=== PATIENT | male | born 1955 | race Caucasian/White ===

== ENCOUNTER → 2017-10-26 08:58 | Outpatient (CLI) | payer OTHER, SELFPAY ==
[2017-10-26 11:00] LABS: Anion Gap 4 (5-15); BUN 12 mg/dL (7-18); BUN/Creat Ratio 12.2 RATIO (10-20); Calcium,Total 8.5 mg/dL (8.5-10.1); Chloride 109 mmol/L (98-107); Cholesterol 168 mg/dL (200); Creatinine, Serum 0.99 mg/dL (0.70-1.30); EST Glomerular Filtration Rate 82 mL/min (>60); Est Glom Filt Rate - Afr Amer 99 mL/min (>60); Glucose 101 mg/dL (74-106); High Density Lipoprotein 56 mg/dL; PSA,Total - Annual Screen 1.11 ng/mL (0.00-4.00); Potassium 4.7 mmol/L (3.5-5.1); Sodium Level 141 mmol/L (136-145); Triglycerides 47 mg/dL; Very Low Density Lipoprotein 9 mg/dL (5-40)
== END ==
PROVIDERS: Family Provider Family Medicine; PCP Family Medicine; Visit Provider Family Medicine
DX: I10 Essential (primary) hypertension (principal); Z12.5 Encounter for screening for malignant neoplasm of prostate
CPT/HCPCS: 36415; 80048; 80061; 84153; G0103

== ENCOUNTER → 2019-01-10 | Outpatient (CLI) | payer OTHER, SELFPAY ==
[2018-12-25 09:11] VITALS: BMI 29.2
--- NOTE | 2019-01-10 08:54 | ECHOD_ITS ---
Reason For Study: Arrhythmia Procedure This was a 2D Doppler, Color Flow transthoracic echocardiogram. Contrast injection was performed. Exam performed in department. Left Ventricle Normal LV size. Mild concentric left ventricular hypertrophy. The estimated ejection fraction is 50 %. Left ventricular systolic function is lower limits of normal. There is borderline global hypokinesis of the left ventricle. Right Ventricle Normal RV size. Normal systolic function. Atria The left atrium is mildly enlarged. Normal right atrium. Intact atrial septum. Bubble contrast study negative for right to left interatrial shunt. Mitral Valve Normal mitral valve. Mild (1+) eccentric mitral valve insufficiency. Tricuspid Valve Normal tricuspid valve. Aortic Valve Trisinus/trileaflet aortic valve. Pulmonic Valve Normal pulmonic valve. Great Vessels Normal aortic root. Pericardium/Pleural No pericardial effusion. Medication 22 gauge I.V. with prn adaptor inserted into right arm. Performed a rapid injection of agitated mix of 9 cc saline and 1cc air to assess for atrial septal defect. MMode/2D Measurements & Calculations LVIDd: 5.4 cm IVSd: 1.2 cm Ao root diam: 3.7 cm LVIDs: 3.8 cm LVPWd: 1.2 cm LA dimension: 4.4 cm FS: 28.8 % LAV(MOD-bp): 72.8 ml LA A4 area: 21.4 cm2 RA A4 area: 16.3 cm2 LAV(MOD-bp) Indexed: 35.6 ml/m2 LAV(MOD-sp2): 70.6 ml LAV(MOD-sp4): 67.3 ml Time Measurements MV dec time: 0.32 sec Doppler Measurements & Calculations MV E max norris: 45.6 cm/sec Lat Peak E' Norris: 9.2 cm/sec Med Peak E' Norris: 5.4 cm/sec MV A max norris: 69.2 cm/sec E/E' lat: 4.9 E/E' med: 8.4 MV E/A: 0.66 MV V2 max: 59.1 cm/sec MV P1/2t max norris: 42.3 cm/sec Ao V2 max: 111.6 cm/sec MV max P.4 mmHg MV P1/2t: 154.7 msec Ao max P.0 mmHg MV V2 mean: 30.7 cm/sec MV dec slope: 80.0 cm/sec2 Ao V2 mean: 76.7 cm/sec MV mean P.43 mmHg Ao mean P.6 mmHg MV V2 VTI: 21.5 cm MVA(P1/2t): 1.4 cm2 Ao V2 VTI: 21.3 cm AI max norris: 465.9 cm/sec LV V1 max: 69.9 cm/sec PA V2 max: 182.7 cm/sec AI max P.8 mmHg LV V1 max P.0 mmHg AI dec slope: 159.9 cm/sec2 LV V1 mean P.92 mmHg AI P1/2t: 853.2 msec LV V1 mean: 43.9 cm/sec LV V1 VTI: 17.8 cm PI end-d norris: 111.7 cm/sec Interpretation Summary Normal LV size. Mild concentric left ventricular hypertrophy. The estimated ejection fraction is 50 %. Left ventricular systolic function is lower limits of normal. The left atrium is mildly enlarged. Intact atrial septum Bubble contrast study negative for right to left interatrial shunt. Ordering Physician: Adis Steele Referring Physician: Jagdeep Yeh Performed By: Hood Gary RCS
== END | disposition home or self-care (01) ==
LOC: CVS 08:52
PROVIDERS: Family Provider Family Medicine; PCP Family Medicine; Referring Provider Internal Medicine Cardiovascular Disease; Visit Provider Internal Medicine Cardiovascular Disease
DX: I10 Essential (primary) hypertension (principal)
CPT/HCPCS: 93306; A4216

== ENCOUNTER → 2019-04-23 10:35 | Outpatient (CLI) | payer OTHER, SELFPAY ==
[2018-12-25 09:11] VITALS: BMI 29.2
[2019-04-23 10:38] LABS: Bacteria 0 SEEN /hpf (None Seen); Mucous, Urine 0 SEEN /hpf (<or=2+); Red Blood Cells-Urine 0 SEEN /hpf (0-5); Squamous Epithelial Cells - UA 0 SEEN /hpf (0-5); White Blood Cells 0 SEEN /hpf (0-5)
[2019-04-23 12:18] LABS: Absolute Lymphocyte Count 1.61 X10^3/uL (0.83-4.51); Absolute Neutrophil Count 4.1 X10^3/uL (2.0-7.7); Basophil# 0.07 X10^3/uL; Basophil% 1.1 % (0-1); Eosinophil# 0.18 X10^3/uL; Eosinophils% 2.8 % (0-5); Hematocrit 41.5 % (40-54); Hemoglobin 13.8 g/dL (13.0-16.5); Lymphocyte # 1.61 X10^3/ul (4.0); Lymphocyte % 24.8 % (19-41); Mean Corp Hgb Conc 33.3 g/dL (32-36); Mean Corpuscular Hgb 30.3 pg (27.0-32.0); Mean Corpuscular Volume 91.2 fL (80-94); Mean Platelet Vol. 8.7 fl (6.2-12.0); Monocyte# 0.51 X10^3/uL; Monocyte% 7.9 % (0-10); NRBC Flagged by Analyzer 0 % (0-5); Neutrophil # 4.09 X10^3/uL (2.7-7.7); Neutrophil % 62.9 % (47-70); Platelet Count 242 K/mm3 (150-450); RBC Distribution Width CV 12.7 % (11.6-14.6); RBC Distribution Width SD 42.1 fl (35.1-43.9); Red Blood Count 4.55 M/mm3 (4.6-6.2); White Blood Count 6.5 K/mm3 (4.4-11.0)
[2019-04-23 12:22] LABS: Color, Urine Yellow (Yellow); Glucose, Dipstick Normal (Normal); Ketone-Dipstick Negative (Negative); Leukocyte Esterase-Dipstick Negative /ul (Negative); Nitrite-Dipstick Negative (Negative); Occult Blood-Urine Negative /ul (Negative); Protein-Dipstick Negative (Negative); Urine Bilirubin Dipstick Negative (Negative); Urine Clarity Clear (Clear); Urine Urobilinogen Normal (Normal)
[2019-04-23 12:29] LABS: Hemoglobin A1c 5.4 % (4.2-6.3)
[2019-04-23 12:34] LABS: ALB/GLOB Ratio 1.1 RATIO (0.9-2.4); AST(SGOT) 15 U/L (15-37); Alanine Aminotransfer ALT/SGPT 24 U/L (16-61); Albumin, Serum 3.5 g/dL (3.2-5.0); Alkaline Phosphatase 78 U/L (45-117); Anion Gap 6 (5-15); BUN 18 mg/dL (7-18); BUN/Creat Ratio 17.8 RATIO (10-20); Calcium,Total 8.6 mg/dL (8.5-10.1); Chloride 108 mmol/L (98-107); Creatinine, Serum 1.01 mg/dL (0.70-1.30); EST Glomerular Filtration Rate 79 mL/min (>60); Est Glom Filt Rate - Afr Amer 96 mL/min (>60); Globulin 3.2 g/dL (2.2-4.2); Glucose 95 mg/dL (74-106); Potassium 4.6 mmol/L (3.5-5.1); Protein, Total 6.7 g/dL (6.4-8.2); Sodium Level 139 mmol/L (136-145); Thyroid Stim Hormone (TSH) 0.98 uIU/mL (0.358-3.74)
[2019-04-23 13:00] LABS: Amorphous Sediment N; Calcium Oxalate Crystals Ur N /hpf (<or=2+); Coarse Granular Cast 0 SEEN /lpf (0-5 /lpf); Fine Granular Cast- Urine 0 SEEN /lpf (0-5); Hyaline Cast 0 SEEN /lpf (0-5); Other Crystals-Urine N /hpf (None Seen); Red Cell Cast 0 SEEN /lpf (None Seen); Renal Epithelial Cells 0 SEEN /hpf (0-5); Transitional Epithelial - Ur 0 SEEN /hpf (0-5); Trichomonas 0 SEEN /hpf (None Seen); Triple Phosphate Crystals Ur N /hpf (<or=1+); Uric Acid Crystals Ur N /hpf (<or=1+); Waxy Cast-Urine 0 SEEN /lpf (None Seen); White Cell Cast 0 SEEN /lpf (None Seen)
[2019-04-23 13:01] LABS: Yeast-Urine N /hpf (None Seen)
== END ==
PROVIDERS: Family Provider Family Medicine; PCP Family Medicine; Referring Provider Family Medicine; Visit Provider Family Medicine
DX: I10 Essential (primary) hypertension (principal); R73.09 Other abnormal glucose
CPT/HCPCS: 36415; 80053; 81001; 83036; 84443; 85025

== ENCOUNTER → 2019-10-28 08:59 | Outpatient (CLI) | payer OTHER, SELFPAY ==
[2018-12-25 09:11] VITALS: BMI 29.2
[2019-10-28 10:32] LABS: PSA,Total - Annual Screen 1.77 ng/mL (0.00-4.00)
== END ==
PROVIDERS: PCP Family Medicine; Referring Provider Family Medicine; Visit Provider Family Medicine
DX: Z12.5 Encounter for screening for malignant neoplasm of prostate (principal)
CPT/HCPCS: 36415; 84153; G0103

== ENCOUNTER → 2020-02-03 07:45 | Outpatient (CLI) | payer OTHER, SELFPAY ==
[2020-01-01 09:25] VITALS: BMI 29.2
--- NOTE | 2020-02-03 07:48 | ECHOD_ITS ---
Reason For Study: NON-ISCHEMIC CMP Procedure This was a 2D Doppler, Color Flow transthoracic echocardiogram. Exam performed in department. Left Ventricle Normal LV size. The estimated ejection fraction is 50 %. No regional wall motion abnormalities noted. Right Ventricle Normal RV size. Normal systolic function. Atria The left atrium is mildly enlarged. Normal right atrium. Hypermobile atrial septum. Mitral Valve Normal mitral valve. Mild (1+) eccentric mitral valve insufficiency. Tricuspid Valve Normal tricuspid valve. Aortic Valve Normal aortic valve. Trisinus/trileaflet aortic valve. Mild (1+) aortic valve insufficiency. Pulmonic Valve Normal pulmonic valve. Great Vessels Normal aortic root. The pulmonary artery is normal size. Normal inferior vena cava. Pericardium/Pleural No pericardial effusion. MMode/2D Measurements & Calculations LVIDd: 5.4 cm IVSd: 1.1 cm Ao root diam: 3.6 cm LVIDs: 3.9 cm LVPWd: 1.00 cm RVDd: 4.2 cm FS: 27.0 % LAV(MOD-bp): 74.1 ml LA A4 area: 22.3 cm2 LA dimension(2D): 4.5 cm LAV(MOD-bp) Indexed: 36.0 ml/m2 LAV(MOD-sp2): 72.0 ml LAV(MOD-sp4): 72.5 ml RA A4 area: 15.5 cm2 Doppler Measurements & Calculations MV E max norris: 38.6 cm/sec Lat Peak E' Norris: 9.1 cm/sec Med Peak E' Norris: 5.5 cm/sec MV A max norris: 62.5 cm/sec E/E' lat: 4.2 E/E' med: 7.0 MV E/A: 0.62 Ao V2 max: 111.4 cm/sec AI max norris: 459.4 cm/sec LV V1 max: 72.5 cm/sec Ao max P.0 mmHg AI max P.4 mmHg LV V1 max P.1 mmHg Ao V2 mean: 78.9 cm/sec AI dec slope: 166.0 cm/sec2 LV V1 mean P.1 mmHg Ao mean P.7 mmHg AI P1/2t: 810.5 msec LV V1 mean: 50.7 cm/sec Ao V2 VTI: 23.6 cm LV V1 VTI: 15.6 cm PA V2 max: 120.0 cm/sec TR max norris: 240.8 cm/sec TR max P.3 mmHg Interpretation Summary Hypermobile atrial septum. Normal LV size. The estimated ejection fraction is 50 %. No regional wall motion abnormalities noted. Mild (1+) eccentric mitral valve insufficiency. Mild (1+) aortic valve insufficiency. Compared to prior study, there is no significant change. Ordering Physician: Adis Steele Referring Physician: Jagdeep Yeh Performed By: Keysha Zurita, CHRISTIANO, RVT
== END ==
PROVIDERS: PCP Family Medicine; Referring Provider Internal Medicine Cardiovascular Disease; Visit Provider Internal Medicine Cardiovascular Disease
DX: I42.8 Other cardiomyopathies (principal)
CPT/HCPCS: 93306

== ENCOUNTER → 2020-04-28 08:17 | Outpatient (CLI) | payer OTHER, SELFPAY ==
[2020-01-01 09:25] VITALS: BMI 29.2
[2020-04-28 08:20] LABS: Bacteria 0 SEEN /hpf (None Seen); Mucous, Urine 0 SEEN /hpf (<or=2+); Red Blood Cells-Urine 0 SEEN /hpf (0-5); Squamous Epithelial Cells - UA 0 SEEN /hpf (0-5); White Blood Cells 0 SEEN /hpf (0-5)
[2020-04-28 10:08] LABS: Absolute Lymphocyte Count 1.98 X10^3/uL (0.83-4.51); Absolute Neutrophil Count 3.8 X10^3/uL (2.0-7.7); Basophil% 1.5 % (0-1); Eosinophil# 0.23 X10^3/uL; Eosinophils% 3.4 % (0-5); Hematocrit 41.1 % (40-54); Hemoglobin 13.6 g/dL (13.0-16.5); Lymphocyte # 1.98 X10^3/ul (4.0); Lymphocyte % 29.3 % (19-41); Mean Corp Hgb Conc 33.1 g/dL (32-36); Mean Corpuscular Volume 90.7 fL (80-94); Mean Platelet Vol. 8.8 fl (6.2-12.0); Monocyte# 0.61 X10^3/uL; NRBC Flagged by Analyzer 0 % (0-5); Neutrophil # 3.82 X10^3/uL (2.7-7.7); Neutrophil % 56.5 % (47-70); Platelet Count 282 K/mm3 (150-450); RBC Distribution Width CV 12.9 % (11.6-14.6); RBC Distribution Width SD 42.7 fl (35.1-43.9); Red Blood Count 4.53 M/mm3 (4.6-6.2); White Blood Count 6.8 K/mm3 (4.4-11.0)
[2020-04-28 10:09] LABS: Color, Urine Yellow (Yellow); Glucose, Dipstick Normal (Normal); Ketone-Dipstick Negative (Negative); Leukocyte Esterase-Dipstick Negative /ul (Negative); Nitrite-Dipstick Negative (Negative); Occult Blood-Urine Negative /ul (Negative); Protein-Dipstick Negative (Negative); Specific Gravity, Urine 1.025 (1.002-1.030); Urine Bilirubin Dipstick Negative (Negative); Urine Clarity Clear (Clear); Urine Urobilinogen Normal (Normal)
[2020-04-28 10:36] LABS: AST(SGOT) 9 U/L (15-37); Alanine Aminotransfer ALT/SGPT 20 U/L (16-61); Albumin, Serum 3.3 g/dL (3.2-5.0); Alkaline Phosphatase 71 U/L (45-117); Anion Gap 5 (5-15); BUN 15 mg/dL (7-18); BUN/Creat Ratio 15.3 RATIO (10-20); Calcium,Total 8.5 mg/dL (8.5-10.1); Chloride 110 mmol/L (98-107); Cholesterol 144 mg/dL (200); Creatinine, Serum 0.98 mg/dL (0.70-1.30); EST Glomerular Filtration Rate 82 mL/min (>60); Est Glom Filt Rate - Afr Amer 99 mL/min (>60); Globulin 3.3 g/dL (2.2-4.2); Glucose 95 mg/dL (74-106); High Density Lipoprotein 57 mg/dL; Potassium 4.5 mmol/L (3.5-5.1); Protein, Total 6.6 g/dL (6.4-8.2); Sodium Level 140 mmol/L (136-145); Thyroid Stim Hormone (TSH) 1.68 uIU/mL (0.358-3.74); Triglycerides 66 mg/dL; Very Low Density Lipoprotein 13 mg/dL (5-40)
== END ==
PROVIDERS: PCP Family Medicine; Referring Provider Family Medicine; Visit Provider Family Medicine
DX: I10 Essential (primary) hypertension (principal)
CPT/HCPCS: 36415; 80053; 80061; 81001; 84443; 85025

== ENCOUNTER 2020-06-30 13:41 | Emergency (ER) | payer OTHER, SELFPAY ==
[2020-01-01 09:25] VITALS: BMI 29.2
[2020-06-30 13:45] VITALS: BP 138/69; PULSE 77; RESP 17; TEMP 37.2; O2SAT 98; BMI 31.5
--- NOTE | 2020-06-30 13:59 | EKG12_ITS ---
Test Reason : CP Blood Pressure : / mmHG Vent. Rate : 075 BPM Atrial Rate : 075 BPM P-R Int : 170 ms QRS Dur : 106 ms QT Int : 392 ms P-R-T Axes : 033 -15 003 degrees QTc Int : 437 ms Normal sinus rhythm Anteroseptal infarct , age undetermined Abnormal ECG Confirmed by SISSY COLE, MADAN ([id number]), editor trade journal MAYLIN SANDERS ([id number]) on 07/02/2020 9:28:13 AM Referred By: YOUSIF Confirmed By:MIKE SHEEHAN MD
[2020-06-30] MEDS: Morphine 4 MG/ML Syringe IV ×2 (14:18→16:48)
[2020-06-30] MEDS: Ondansetron 4 MG/2 ML Vial IV (14:18)
[2020-06-30 14:22] VITALS: BP 142/74; PULSE 82; RESP 18; TEMP 37.1; O2SAT 98
--- NOTE | 2020-06-30 14:30 | RAD_ITS ---
STUDY: X-RAY CHEST REASON FOR EXAM: Male, 65 years old. Fever TECHNIQUE: Single AP portable view of the chest. COMPARISON: None. FINDINGS: EKG electrodes are seen. The lungs are clear and expanded. There is no demonstrated pleural abnormality. Normal size heart. Normal mediastinum and curry. Normal visualized pulmonary arteries. Normal visualized aortic arch and descending thoracic aorta. Normal visualized thoracic spine. Normal visualized ribs, clavicles, and shoulders. There is no demonstrated abnormality of the visualized soft tissue structures of the upper abdomen. RAD/Chest 1 View IMPRESSION: Normal x-ray examination of the chest. Electronically Signed: Clay Patel MD at 14:45 EDT , Service support ,
--- NOTE | 2020-06-30 14:30 | RAD_ITS ---
STUDY: X-RAY - PELVIS AND LEFT HIP REASON FOR EXAM: Male, 65 years old. Injury/Pain TECHNIQUE: 3 views of the pelvis and hip. COMPARISON: None. FINDINGS: There is a non-specific bowel gas pattern. Normal visualized soft tissue structures. Normal bilateral iliac wings, sacroiliac joints and visualized sacrum. Normal bilateral superior and inferior pubic rami. Normal pubic symphysis. Normal bilateral ischial tuberosities. The patient is status post left total hip replacement. There is normal alignment. There is a marked degree of joint space narrowing involving the right hip joint. RAD/HIP, UNI W/ Pelvis 2-3 Views IMPRESSION: Status post left total hip replacement. There is good alignment. Marked degree of osteoarthritis and joint space narrowing involving the right hip joint. Electronically Signed: Clay Patel MD at 14:46 EDT , Service support ,
[2020-06-30 14:33] LABS: Erythrocyte Sedimentation Rate < 1 mm/hr (0-20)
[2020-06-30 14:35] LABS: Absolute Lymphocyte Count 0.59 X10^3/uL (0.83-4.51); Absolute Neutrophil Count 13.5 X10^3/uL (2.0-7.7); Basophil# 0.07 X10^3/uL; Basophil% 0.5 % (0-1); Eosinophil# 0.02 X10^3/uL; Eosinophils% 0.1 % (0-5); Hematocrit 39.9 % (40-54); Hemoglobin 13.5 g/dL (13.0-16.5); Lymphocyte # 0.59 X10^3/ul (4.0); Lymphocyte % 3.8 % (19-41); Mean Corp Hgb Conc 33.8 g/dL (32-36); Mean Corpuscular Hgb 30.6 pg (27.0-32.0); Mean Corpuscular Volume 90.5 fL (80-94); Mean Platelet Vol. 9.1 fl (6.2-12.0); Monocyte# 1.17 X10^3/uL; Monocyte% 7.6 % (0-10); NRBC Flagged by Analyzer 0 % (0-5); Neutrophil # 13.49 X10^3/uL (2.7-7.7); Neutrophil % 87.5 % (47-70); POSITIVE DIFFERENTIAL YES; Platelet Count 189 K/mm3 (150-450); RBC Distribution Width CV 13.2 % (11.6-14.6); RBC Distribution Width SD 43.8 fl (35.1-43.9); Red Blood Count 4.41 M/mm3 (4.6-6.2); White Blood Count 15.4 K/mm3 (4.4-11.0)
[2020-06-30 14:39] LABS: Differential Indicated SCAN CRITERIA MET
[2020-06-30 14:40] LABS: International Normalized Ratio 1.2; Prothrombin Time (Protime)PT. 14.1 SECONDS (11.7-14.9)
[2020-06-30 14:41] LABS: Partial Thromboplast Time 25.9 Seconds (24.1-36.2)
[2020-06-30 14:46] LABS: ALB/GLOB Ratio 1.2 RATIO (0.9-2.4); AST(SGOT) 27 U/L (15-37); Alanine Aminotransfer ALT/SGPT 29 U/L (16-61); Albumin, Serum 3.5 g/dL (3.2-5.0); Alkaline Phosphatase 75 U/L (45-117); Anion Gap 6 (5-15); BUN 15 mg/dL (7-18); Calcium,Total 8.4 mg/dL (8.5-10.1); Chloride 106 mmol/L (98-107); EST Glomerular Filtration Rate 80 mL/min (>60); Est Glom Filt Rate - Afr Amer 97 mL/min (>60); Estimated Creatinine Clearance 74.63 ml/min; Globulin 2.9 g/dL (2.2-4.2); Glucose 117 mg/dL (74-106); Protein, Total 6.4 g/dL (6.4-8.2); Sodium Level 139 mmol/L (136-145)
--- NOTE | 2020-06-30 15:00 | ED.VISSUMM ---
- ER Visit Summary Date of Service: 06/30/20 Chief Complaint: Left hip pain, syncope History of Present Illness: The patient is a [address] Yeh He reports that he had his left hip replaced by Dr. Ortiz in [place] approximately 5-1/2 years ago. States that he was fine yesterday he played pickle ball and did not have any injury. He states that this is not unusual for him. He denies car accident. Patient reports that this morning he woke up and had severe left hip pain pain is a sharp pain is 9-10 with movement laterally and 4-10 at rest and after Aleve. Reports that he does feel he developed a fever to 101 degrees today. He denies any sore throat or cough. No chest pain or difficulty breathing. No abdominal pain. Patient reports that just prior to coming in the emergency department he was sitting on the commode and felt flushed, diaphoretic, lightheaded. reports that he had a syncopal episode for approximately 30 seconds. Patient denies any preceding chest pain, shortness of breath, or palpitations. He was nauseated after and has vomited twice since then. He denied any emesis or nausea prior to this. He did not fall. He denies any other injuries or complaints. Physical Examination: Vitals: Stable. Afebrile. General: Well-nourished and well-developed. Head: Normocephalic atraumatic. Neck: Supple, no lymphadenopathy. No JVD. Nontender. Cardiovascular: Regular rate and rhythm. No murmurs. Respiratory: No respiratory distress. Clear to auscultation bilaterally. Abdominal: Soft, nontender, nondistended, normal bowel sounds. No guarding, rebound, or peritoneal signs. Back: Nontender. Extremities: No tenderness palpation over the left greater trochanter. He does have moderate pain with internal or external rotation of his left hip. There is no overlying erythema or warmth to suggest a septic joint. Skin: Normal color, no rash. Neurologic: Alert and oriented ?3. Cranial nerves II through XII are intact. Normal strength and sensation. Psych: Normal affect. Test Results: EKG is sinus at 75 with PVCs. It is unchanged from December 2018. Troponin is negative. INR is 1.2. PTT is 25.9. LFTs are normal. Chem-7 shows a glucose 117. CBC shows a white count of 15.4 with 88 segmented neutrophils and 4 lymphocytes. Hemoglobin adequate is 39.9. ESR is less than 1. CRP is 18.3. Covid is negative. Urinalysis is negative. Clinical Impression(s) from Imaging Studies Chest X-Ray 06/30/20 14:30 IMPRESSION: Normal x-ray examination of the chest. Electronically Signed: Clay Patel MD at 14:45 EDT , Service support , Hip/Pelvis X-Ray 06/30/20 14:30 IMPRESSION: Status post left total hip replacement. There is good alignment. Marked degree of osteoarthritis and joint space narrowing involving the right hip joint. Electronically Signed: Clay Patel MD at 14:46 EDT , Service support , Emergency Department Course and Treatment: Patient had an IV placed. Is given morphine and Zofran IV. He is resting more comfortably. Treatment Plan: The patient was discussed with Dr. Haney, covering for Dr. Kim. At this time she does not want him placed on antibiotics. He will be seen in their office at 930 tomorrow morning for further evaluation of his hip pain and fever. He is given a prescription for Jasper. Return to the emergency department for any worsening symptoms. Disposition: To home in improved and stable condition. Impression: 1. Left hip pain, acute. 2. Fever. This note was generated with [email or web address] dictation software. It may contain incorrect words, spelling, and punctuation that were not noted in review of the chart prior to signing ED Disposition - Plan for ED Patient: Instructions: ED FUO Adult Prescriptions: Hydrocodone Bitart/Apap 5-325 [Jasper 5MG-325MG] 1 tablet PO Q4H PRN PRN 2 Days #10 tablet PRN Reason: Pain Additional Instructions: Follow up with Dr. Chavez in 1 day for further evaluation.
--- NOTE | 2020-06-30 15:15 | NURSING ---
dr miles aware lactic 2.0
[2020-06-30 15:22] LABS: Bacteria 0 SEEN /hpf (None Seen); Mucous, Urine 0 SEEN /hpf (<or=2+); Red Blood Cells-Urine 0 SEEN /hpf (0-5); Squamous Epithelial Cells - UA 0 SEEN /hpf (0-5); White Blood Cells 0 SEEN /hpf (0-5)
[2020-06-30 15:23] LABS: Color, Urine Yellow (Yellow); Glucose, Dipstick Normal (Normal); Ketone-Dipstick Negative (Negative); Leukocyte Esterase-Dipstick Negative /ul (Negative); Nitrite-Dipstick Negative (Negative); Occult Blood-Urine Negative /ul (Negative); Protein-Dipstick 15 mg/dl (Negative); Urine Bilirubin Dipstick Negative (Negative); Urine Clarity Clear (Clear); Urine Urobilinogen Normal (Normal); Urine pH 6.5 (5.0 - 8.0)
[2020-06-30 16:51] VITALS: BP 130/73; PULSE 80; RESP 21; O2SAT 95
[2020-06-30 18:23] LABS: Reflex Lactate? Y
== END 2020-06-30 17:29 | disposition home or self-care (01) ==
PROVIDERS: Emergency Provider Emergency Medicine; PCP Family Medicine
DX: M25.552 Pain in left hip (principal); R50.9 Fever, unspecified; R55 Syncope and collapse; I10 Essential (primary) hypertension; Z79.82 Long term (current) use of aspirin
CPT/HCPCS: 71045; 73502; 80053; 81001; 83605; 84484; 85025; 85610; 85652; 85730; 86140; 87040; 87086; 87426; 93005; 96361; 96374; 96375; 96376; 99285; A4216; J2405

== ENCOUNTER 2020-08-02 11:33 | Outpatient (RCR) | payer OTHER, SELFPAY ==
[2020-07-12 15:56] LABS: Hematocrit 38.1 % (40-54); Hemoglobin 12.4 g/dL (13.0-16.5); Mean Corp Hgb Conc 32.5 g/dL (32-36); Mean Corpuscular Hgb 30.5 pg (27.0-32.0); Mean Corpuscular Volume 93.6 fL (80-94); Mean Platelet Vol. 8.4 fl (6.2-12.0); Platelet Count 375 K/mm3 (150-450); RBC Distribution Width CV 13.2 % (11.6-14.6); RBC Distribution Width SD 45.1 fl (35.1-43.9); Red Blood Count 4.07 M/mm3 (4.6-6.2); White Blood Count 11.1 K/mm3 (4.4-11.0)
[2020-07-12 16:14] LABS: Creatinine, Serum 0.89 mg/dL (0.70-1.30); EST Glomerular Filtration Rate 92 mL/min (>60); Est Glom Filt Rate - Afr Amer 111 mL/min (>60)
[2020-07-12 16:31] LABS: Erythrocyte Sedimentation Rate 9 mm/hr (0-20)
[2020-07-19 16:50] LABS: Hemoglobin 12.4 g/dL (13.0-16.5); Mean Corp Hgb Conc 32.6 g/dL (32-36); Mean Corpuscular Hgb 29.5 pg (27.0-32.0); Mean Corpuscular Volume 90.3 fL (80-94); Mean Platelet Vol. 8.8 fl (6.2-12.0); Platelet Count 394 K/mm3 (150-450); RBC Distribution Width SD 43.2 fl (35.1-43.9); Red Blood Count 4.21 M/mm3 (4.6-6.2)
[2020-07-19 16:57] LABS: EST Glomerular Filtration Rate 80 mL/min (>60); Est Glom Filt Rate - Afr Amer 97 mL/min (>60)
[2020-07-19 17:02] LABS: Erythrocyte Sedimentation Rate 7 mm/hr (0-20)
[2020-07-26 09:46] LABS: Erythrocyte Sedimentation Rate 4 mm/hr (0-20)
[2020-07-26 09:49] LABS: Hematocrit 37.8 % (40-54); Hemoglobin 12.4 g/dL (13.0-16.5); Mean Corp Hgb Conc 32.8 g/dL (32-36); Mean Corpuscular Volume 91.3 fL (80-94); Mean Platelet Vol. 9.1 fl (6.2-12.0); Platelet Count 283 K/mm3 (150-450); RBC Distribution Width SD 43.6 fl (35.1-43.9); Red Blood Count 4.14 M/mm3 (4.6-6.2); White Blood Count 7.1 K/mm3 (4.4-11.0)
[2020-07-26 10:17] LABS: CRP 7.28 mg/L (0.0-3.0); Creatinine, Serum 0.87 mg/dL (0.70-1.30); EST Glomerular Filtration Rate 94 mL/min (>60); Est Glom Filt Rate - Afr Amer 113 mL/min (>60)
[2020-08-02 12:09] LABS: Erythrocyte Sedimentation Rate 4 mm/hr (0-20)
[2020-08-02 12:11] LABS: Hematocrit 38.7 % (40-54); Hemoglobin 12.9 g/dL (13.0-16.5); Mean Corp Hgb Conc 33.3 g/dL (32-36); Mean Corpuscular Hgb 30.2 pg (27.0-32.0); Mean Corpuscular Volume 90.6 fL (80-94); Mean Platelet Vol. 9.5 fl (6.2-12.0); Platelet Count 242 K/mm3 (150-450); RBC Distribution Width SD 42.8 fl (35.1-43.9); Red Blood Count 4.27 M/mm3 (4.6-6.2); White Blood Count 5.4 K/mm3 (4.4-11.0)
[2020-08-02 12:21] LABS: CRP 8.01 mg/L (0.0-3.0); Creatinine, Serum 0.88 mg/dL (0.70-1.30); EST Glomerular Filtration Rate 93 mL/min (>60); Est Glom Filt Rate - Afr Amer 113 mL/min (>60)
== END 2020-08-06 23:59 ==
LOC: HHLAB 11:33
PROVIDERS: PCP Family Medicine; Referring Provider Family Medicine; Visit Provider Family Medicine
DX: T84.52XA Infection and inflammatory reaction due to internal left hip prosthesis, initial encounter (principal)
CPT/HCPCS: 82565; 85027; 85652; 86140

== ENCOUNTER 2020-08-17 09:27 | Outpatient (RCR) | payer OTHER, SELFPAY ==
[2020-08-09 13:13] LABS: Erythrocyte Sedimentation Rate 6 mm/hr (0-20)
[2020-08-09 13:15] LABS: Hematocrit 39.7 % (40-54); Hemoglobin 12.8 g/dL (13.0-16.5); Mean Corp Hgb Conc 32.2 g/dL (32-36); Mean Corpuscular Hgb 29.4 pg (27.0-32.0); Mean Corpuscular Volume 91.1 fL (80-94); Mean Platelet Vol. 9.2 fl (6.2-12.0); Platelet Count 240 K/mm3 (150-450); RBC Distribution Width CV 13.2 % (11.6-14.6); RBC Distribution Width SD 44.7 fl (35.1-43.9); Red Blood Count 4.36 M/mm3 (4.6-6.2); White Blood Count 5.8 K/mm3 (4.4-11.0)
[2020-08-09 13:20] LABS: CRP 8.82 mg/L (0.0-3.0); Creatinine, Serum 0.87 mg/dL (0.70-1.30); EST Glomerular Filtration Rate 94 mL/min (>60); Est Glom Filt Rate - Afr Amer 114 mL/min (>60)
[2020-08-16 13:17] LABS: Erythrocyte Sedimentation Rate 2 mm/hr (0-20); Hematocrit 40.2 % (40-54); Mean Corp Hgb Conc 32.3 g/dL (32-36); Mean Corpuscular Hgb 29.5 pg (27.0-32.0); Mean Corpuscular Volume 91.2 fL (80-94); Mean Platelet Vol. 9.5 fl (6.2-12.0); Platelet Count 273 K/mm3 (150-450); RBC Distribution Width CV 13.2 % (11.6-14.6); RBC Distribution Width SD 43.8 fl (35.1-43.9); Red Blood Count 4.41 M/mm3 (4.6-6.2); White Blood Count 5.6 K/mm3 (4.4-11.0)
[2020-08-17 10:09] LABS: CRP 4.49 mg/L (0.0-3.0); EST Glomerular Filtration Rate 90 mL/min (>60); Est Glom Filt Rate - Afr Amer 109 mL/min (>60)
== END 2020-08-17 18:00 | disposition home or self-care (01) ==
LOC: HHLAB 09:27
PROVIDERS: PCP Family Medicine
DX: Z45.2 Encounter for adjustment and management of vascular access device (principal); Z95.828 Presence of other vascular implants and grafts
CPT/HCPCS: 82565; 85027; 85652; 86140

== ENCOUNTER → 2020-09-16 09:03 | Outpatient (CLI) | payer OTHER, SELFPAY ==
[2020-09-16 10:09] LABS: Erythrocyte Sedimentation Rate 3 mm/hr (0-20)
[2020-09-16 10:12] LABS: Absolute Lymphocyte Count 1.37 X10^3/uL (0.83-4.51); Absolute Neutrophil Count 3.2 X10^3/uL (2.0-7.7); Basophil# 0.09 X10^3/uL; Basophil% 1.7 % (0-1); Eosinophil# 0.16 X10^3/uL; Hematocrit 41.4 % (40-54); Hemoglobin 13.7 g/dL (13.0-16.5); Lymphocyte # 1.37 X10^3/ul (0.83-4.51); Lymphocyte % 25.7 % (19-41); Mean Corp Hgb Conc 33.1 g/dL (32-36); Mean Corpuscular Hgb 29.4 pg (27.0-32.0); Mean Corpuscular Volume 88.8 fL (80-94); Mean Platelet Vol. 8.8 fl (6.2-12.0); Monocyte# 0.47 X10^3/uL; Monocyte% 8.8 % (0-10); NRBC Flagged by Analyzer 0 % (0-5); Neutrophil # 3.24 X10^3/uL (2.7-7.7); Neutrophil % 60.6 % (47-70); Platelet Count 254 K/mm3 (150-450); RBC Distribution Width CV 13.1 % (11.6-14.6); RBC Distribution Width SD 42.6 fl (35.1-43.9); Red Blood Count 4.66 M/mm3 (4.6-6.2); White Blood Count 5.3 K/mm3 (4.4-11.0)
[2020-09-16 10:37] LABS: Albumin, Serum 3.6 g/dL (3.2-5.0); BUN 17 mg/dL (7-18); BUN/Creat Ratio 18.3 RATIO (10-20); CRP 4.02 mg/L (0.0-3.0); Calcium,Total 8.8 mg/dL (8.5-10.1); Chloride 108 mmol/L (98-107); Creatinine, Serum 0.93 mg/dL (0.70-1.30); EST Glomerular Filtration Rate 87 mL/min (>60); Est Glom Filt Rate - Afr Amer 105 mL/min (>60); Glucose 82 mg/dL (74-106); Phosphorus 3.1 mg/dL (2.5-4.9); Potassium 4.6 mmol/L (3.5-5.1); Sodium Level 139 mmol/L (136-145)
== END ==
PROVIDERS: PCP Family Medicine
DX: T84.52XD Infection and inflammatory reaction due to internal left hip prosthesis, subsequent encounter (principal); A49.1 Streptococcal infection, unspecified site
CPT/HCPCS: 36415; 80069; 85025; 85652; 86140

== ENCOUNTER → 2020-12-06 08:06 | Outpatient (CLI) | payer OTHER, SELFPAY ==
[2020-12-06 10:20] LABS: Erythrocyte Sedimentation Rate 3 mm/hr (0-20)
[2020-12-06 10:24] LABS: Absolute Lymphocyte Count 1.56 X10^3/uL (0.83-4.51); Absolute Neutrophil Count 3.9 X10^3/uL (2.0-7.7); Basophil# 0.08 X10^3/uL; Basophil% 1.2 % (0-1); Eosinophil# 0.26 X10^3/uL; Hematocrit 41.1 % (40-54); Hemoglobin 13.9 g/dL (13.0-16.5); Lymphocyte # 1.56 X10^3/ul (0.83-4.51); Lymphocyte % 24.1 % (19-41); Mean Corp Hgb Conc 33.8 g/dL (32-36); Mean Corpuscular Hgb 29.8 pg (27.0-32.0); Monocyte# 0.62 X10^3/uL; Monocyte% 9.6 % (0-10); NRBC Flagged by Analyzer 0 % (0-5); Neutrophil # 3.93 X10^3/uL (2.7-7.7); Neutrophil % 60.9 % (47-70); Platelet Count 261 K/mm3 (150-450); RBC Distribution Width CV 13.7 % (11.6-14.6); RBC Distribution Width SD 44.5 fl (35.1-43.9); Red Blood Count 4.67 M/mm3 (4.6-6.2); White Blood Count 6.5 K/mm3 (4.4-11.0)
[2020-12-06 10:28] LABS: Albumin, Serum 3.4 g/dL (3.2-5.0); BUN 15 mg/dL (7-18); BUN/Creat Ratio 15.9 RATIO (10-20); CRP 5.92 mg/L (0.0-3.0); Calcium,Total 8.5 mg/dL (8.5-10.1); Chloride 112 mmol/L (98-107); Creatinine, Serum 0.94 mg/dL (0.70-1.30); EST Glomerular Filtration Rate 85 mL/min (>60); Est Glom Filt Rate - Afr Amer 103 mL/min (>60); Glucose 89 mg/dL (74-106); Potassium 4.1 mmol/L (3.5-5.1); Sodium Level 142 mmol/L (136-145)
== END ==
PROVIDERS: PCP Family Medicine
DX: T84.52XD Infection and inflammatory reaction due to internal left hip prosthesis, subsequent encounter (principal); A49.1 Streptococcal infection, unspecified site
CPT/HCPCS: 36415; 80069; 85025; 85652; 86140

== ENCOUNTER 2021-01-27 14:00 | Outpatient (RCR) | payer OTHER, SELFPAY ==
--- NOTE | 2020-12-30 15:09 | HP.PTEVAL_ITS ---
Patient's Visit Information TRACEY TRAN is a 65 year old M referred to Physical Therapy by STUART DAMON with a diagnosis of Unilateral primary osteoarthritis left hip, M16.12. Date of Evaluation: 12/30/20 Physical Therapist: Russ Bee - Visit Plan Frequency: 1-2x /Week Duration: 4 Weeks Plan: Continue with hip and core strengthening. Also work on improving LE flexibility. Use manual therapy and modalities as needed for pain control. - Subjective Pt. is a 65 y.o. male who had a left hip replacement in 2014. This past June they found that his hip was infected and he had left hip reconstruction surgery on 06-21-20. Pt. notes that at the end of September he got out of the tub and felt a pop in his left hip and since has just had some occasional pain. They completed an aspiration of his left hip which did not show any infection. He denies any falls. Pt. denies any back pain as well. He has difficulty with putting his shoes/shoes on, getting into/out of the car, occasionally ascending/descending stairs, occasionally squatting. 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 His goal with physical therapy is to decrease pain as much as he can. Pt. has not any recent physical therapy. Pt. denies any pain currently, at worst 3/10 and describes the pain as achy. Pt. PMH includes left knee arthroscopic surgery and irregular heart beat. Pt. lives with his in a two story home with one step to enter. His hobbies include pickle ball, ball room dancing, biking, and hiking. - Objective Posture- Good posture in standing. Palpation- No tenderness to palpation. Incision over anterior left hip. Lumbar AROM- WNL for all motions and no pain. Hip PROM- WNL bilaterally. Mild tight hamstrings bilaterally. Left hip strength flexion 4+/5, abduction 4+/5, adduction 4+/5, extension 4+/5, knee flexion 5/5, knee extension 5/5, ankle DF 5/5, PF 5/5. Right hip strength flexion 5/5, abduction 5/5, adduction 5/5, extension 5/5, knee flexion 5/5, knee extension 5/5, ankle DF 5/5, PF 5/5. Sensation- WNL bilateral lower extremities. Tandem stance on right [30 secs], left [30 secs]. SLS on right [30 secs], left [30 secs]. Gait- Pt. ambulates with no gait deviations. - Balance/Special Test Scores Lower Extremity Functional Score: 66 - Goals Goal 1:: Pt. will be able to put his shoes and socks on with no pain. Goal Time Frame: 4-6 Weeks Goal 2:: Pt. will be able to ascend/descend a flight of stairs with alternating step pattern and no left hip pain. Goal Time Frame: 4-6 Weeks Goal 3:: Pt. will be able to get into/out of the car with no left hip pain. Goal Time Frame: 4-6 Weeks Goal 4:: Pt. will be able to squat with no left hip pain. Goal Time Frame: 4-6 Weeks Goal 5:: Pt. will rate left hip pain at worst at 3/10 with ADL's. Goal Time Frame: 4-6 Weeks - Rehabilitation Potential Physical Therapy Diagnosis: Decreased left hip strength, flexibility, and pain Rehabilitation Potential: Good - Anticipated Interventions Patient/Client Instruction: Educate patient on: Condition, Plan of Care, Benefits of Fitness Program For the Purpose of:: To decrease pain, To decrease swelling/inflammation, To increase ROM, To improve ability to perform ADL's, To improve performance and independence with ADL's, To increase flexibility/ROM, To assume or resume ADL's, To improve tolerance to ADL's Therapeutic Exercise to Include: Strength training, Balance training, Flexibilty training, Gait and locomotor training, Active ROM Comment: Continue to work on improving hip strength especially hip abductor and extensor strengthening. Also include core strengthening and LE flexibility exercises. For the Purpose of:: To decrease pain, To decrease swelling/inflammation, To increase ROM, To improve ability to perform ADL's, To improve performance and independence with ADL's, To increase flexibility/ROM, To assume or resume ADL's, To improve tolerance to ADL's Functional Training to Include: ADL Training, Functional sports training, Functional home training For the Purpose of:: To decrease pain, To decrease swelling/inflammation, To increase ROM, To improve ability to perform ADL's, To improve performance and independence with ADL's, To increase flexibility/ROM, To assume or resume ADL's, To improve tolerance to ADL's Manual Therapy Techniques to Include: Mobilization, Soft tissue mobilization For the Purpose of:: To decrease pain, To decrease swelling/inflammation, To increase ROM, To improve ability to perform ADL's, To improve performance and independence with ADL's, To increase flexibility/ROM, To assume or resume ADL's, To improve tolerance to ADL's TENS: Yes IF ES: Yes Cryotherapy (ice pack, ice massage): Yes Thermo therapy (hot pack): Yes For the Purpose of:: To decrease pain, To decrease swelling/inflammation, To increase ROM, To improve ability to perform ADL's, To improve performance and independence with ADL's, To assume or resume ADL's, To improve tolerance to ADL's Thank you for the opportunity to evaluate your patient. For Medicare and Medicare HMO plans, please review the plan of care and approve it. It will need to be FAXED BACK to us at [phone] for Medicare purposes. For Medicare only, by signing this I certify the plan of care. Please let me know if there are questions or concerns regarding this plan of care. Physician Signature: Date:
--- NOTE | 2021-01-27 15:10 | HP.PTDCSUM_ITS ---
It has been my pleasure to treat TOMMY TRAN referred by STUART DAMON, with the diagnosis of Unilateral primary osteoarthritis left hip, M16.12 for a total of 4 visit(s). Discharge Date: Please see the following information for a summary of their discharge status. Subjective: Pt. states that he thinks his left hip might be feeling a little bet ter. He danced on Sunday and then played pickleball four times and did well with this. Objective/Function: Tommy has come to 4 sessions of physical therapy focusing on improving left hip ROM, LE strength, and flexibility. Reviewed pt. goals for therapy and he has met his goals for therapy. Educated pt. to continue with his exercises at home. Pt. has been discharged from physical therapy at this time and is in agreement with this. Goal 1:: Pt. will be able to put his shoes and socks on with no pain. Goal Progress: Goal Met Goal 2:: Pt. will be able to ascend/descend a flight of stairs with alternating step pattern and no left hip pain. Goal Progress: Goal Met Goal 3:: Pt. will be able to get into/out of the car with no left hip pain. Goal Progress: Goal Met Goal 4:: Pt. will be able to squat with no left hip pain. Goal Progress: Goal Met Goal 5:: Pt. will rate left hip pain at worst at 3/10 with ADL's. Goal Progress: Goal Met Plan: Pt. is to continue with his current HEP at this time. If there are questions or concerns regarding this patient's physical therapy, please feel free to call me at [phone]. Thank you for the referral of this patient. Sincerely, Russ Bee Balance/Gait/Functional tests - Balance/Special Test Scores Lower Extremity Functional Score: 66
== END 2021-01-27 19:00 | disposition home or self-care (01) ==
LOC: PT 14:00
PROVIDERS: PCP Family Medicine
DX: M16.12 Unilateral primary osteoarthritis, left hip (principal); T84.52XD Infection and inflammatory reaction due to internal left hip prosthesis, subsequent encounter
CPT/HCPCS: 97110; 97161

== ENCOUNTER → 2021-05-11 14:19 | Outpatient (CLI) | payer MEDICARE, OTHER, SELFPAY ==
[2021-05-11 17:55] LABS: Absolute Lymphocyte Count 2.13 X10^3/uL (0.83-4.51); Absolute Neutrophil Count 5.5 X10^3/uL (2.0-7.7); Basophil# 0.09 X10^3/uL; Eosinophil# 0.23 X10^3/uL; Eosinophils% 2.7 % (0-5); Lymphocyte # 2.13 X10^3/ul (0.83-4.51); Lymphocyte % 24.6 % (19-41); Mean Corp Hgb Conc 33.3 g/dL (32-36); Mean Corpuscular Hgb 30.3 pg (27.0-32.0); Mean Corpuscular Volume 90.9 fL (80-94); Monocyte# 0.74 X10^3/uL; Monocyte% 8.5 % (0-10); NRBC Flagged by Analyzer 0 % (0-5); Neutrophil # 5.45 X10^3/uL (2.7-7.7); Platelet Count 241 K/mm3 (150-450); RBC Distribution Width CV 13.4 % (11.6-14.6); RBC Distribution Width SD 45.1 fl (35.1-43.9); Red Blood Count 4.62 M/mm3 (4.6-6.2); White Blood Count 8.7 K/mm3 (4.4-11.0)
[2021-05-11 18:16] LABS: Erythrocyte Sedimentation Rate < 1 mm/hr (0-20)
[2021-05-11 18:43] LABS: Albumin, Serum 3.6 g/dL (3.2-5.0); BUN 18 mg/dL (7-18); BUN/Creat Ratio 18.2 RATIO (10-20); CRP 4.06 mg/L (0.0-3.0); Calcium,Total 8.6 mg/dL (8.5-10.1); Chloride 105 mmol/L (98-107); Creatinine, Serum 0.99 mg/dL (0.70-1.30); EST Glomerular Filtration Rate 81 mL/min (>60); Est Glom Filt Rate - Afr Amer 98 mL/min (>60); Glucose 85 mg/dL (74-106); Phosphorus 3.6 mg/dL (2.5-4.9); Potassium 4.4 mmol/L (3.5-5.1); Sodium Level 139 mmol/L (136-145)
== END ==
PROVIDERS: PCP Family Medicine
DX: A49.1 Streptococcal infection, unspecified site (principal); T84.52XD Infection and inflammatory reaction due to internal left hip prosthesis, subsequent encounter; Z79.2 Long term (current) use of antibiotics
CPT/HCPCS: 36415; 80069; 85025; 85652; 86140

== ENCOUNTER → 2021-12-13 | Outpatient (CLI) | payer MEDICARE, OTHER, SELFPAY ==
[2021-12-13 10:16] LABS: Absolute Lymphocyte Count 1.22 X10^3/uL (0.83-4.51); Absolute Neutrophil Count 3.5 X10^3/uL (2.0-7.7); Basophil# 0.08 X10^3/uL; Basophil% 1.5 % (0-1); Eosinophil# 0.22 X10^3/uL; Hematocrit 40.3 % (40-54); Hemoglobin 13.8 g/dL (13.0-16.5); Lymphocyte # 1.22 X10^3/ul (0.83-4.51); Lymphocyte % 22.2 % (19-41); Mean Corp Hgb Conc 34.2 g/dL (32-36); Mean Corpuscular Hgb 30.5 pg (27.0-32.0); Mean Platelet Vol. 8.7 fl (6.2-12.0); Monocyte% 9.1 % (0-10); NRBC Flagged by Analyzer 0 % (0-5); Neutrophil # 3.45 X10^3/uL (2.7-7.7); Neutrophil % 62.8 % (47-70); Platelet Count 236 K/mm3 (150-450); RBC Distribution Width CV 13.1 % (11.6-14.6); RBC Distribution Width SD 42.8 fl (35.1-43.9); Red Blood Count 4.53 M/mm3 (4.6-6.2); White Blood Count 5.5 K/mm3 (4.4-11.0)
[2021-12-13 10:53] LABS: AST(SGOT) 19 U/L (15-37); Alanine Aminotransfer ALT/SGPT 21 U/L (16-61); Albumin, Serum 3.3 g/dL (3.2-5.0); Alkaline Phosphatase 78 U/L (45-117); Anion Gap 10 (5-15); BUN 17 mg/dL (7-18); BUN/Creat Ratio 16.8 RATIO (10-20); Calcium,Total 8.3 mg/dL (8.5-10.1); Chloride 106 mmol/L (98-107); Cholesterol 143 mg/dL (200); Creatinine, Serum 1.01 mg/dL (0.70-1.30); EST Glomerular Filtration Rate 79 mL/min (>60); Est Glom Filt Rate - Afr Amer 95 mL/min (>60); Globulin 3.3 g/dL (2.2-4.2); Glucose 95 mg/dL (74-106); High Density Lipoprotein 60 mg/dL; PSA,Total - Annual Screen 1.97 ng/mL (0.00-4.00); Potassium 4.3 mmol/L (3.5-5.1); Protein, Total 6.6 g/dL (6.4-8.2); Sodium Level 140 mmol/L (136-145); Triglycerides 60 mg/dL; Very Low Density Lipoprotein 12 mg/dL (5-40)
== END | disposition home or self-care (01) ==
LOC: MTLAB 09:00
PROVIDERS: PCP Family Medicine; Referring Provider Family Medicine; Visit Provider Family Medicine
DX: I10 Essential (primary) hypertension (principal); Z12.5 Encounter for screening for malignant neoplasm of prostate
CPT/HCPCS: 36415; 80053; 80061; 84153; 85025; G0103

== ENCOUNTER 2022-02-07 12:51 | Outpatient (CLI) | payer MEDICARE, OTHER, SELFPAY ==
--- NOTE | 2022-02-07 12:54 | ECHOD_ITS ---
Reason For Study: HTN Procedure This was a 2D Doppler, Color Flow transthoracic echocardiogram. Exam performed in department. Left Ventricle Normal LV size. Left ventricular systolic function is normal. The estimated ejection fraction is 55 %. Stage 1 diastolic dysfunction. No regional wall motion abnormalities noted. Right Ventricle Normal RV size. Normal systolic function. Atria The left atrium is mildly enlarged. Normal right atrium. Bubble contrast study negative for right to left interatrial shunt. Mitral Valve Normal mitral valve. Tricuspid Valve Normal tricuspid valve. Mild (1+) tricuspid valve insufficiency. Pulmonary artery systolic pressure is 38 mmHg. Aortic Valve Normal aortic valve. Trisinus/trileaflet aortic valve. Mild (1+) aortic valve insufficiency. Pulmonic Valve Normal pulmonic valve. Great Vessels Normal aortic root. The pulmonary artery is normal size. Normal inferior vena cava. Pericardium/Pleural No pericardial effusion. Medication 20 gauge I.V. with prn adaptor inserted into right arm. Performed a rapid injection of agitated mix of 9 cc saline and 1cc air to assess for atrial septal defect. MMode/2D Measurements & Calculations LVIDd: 5.3 cm IVSd: 0.82 cm LA dimension: 4.4 cm LVIDs: 3.6 cm LVPWd: 0.85 cm FS: 32.0 % LAV(MOD-bp): 71.0 ml LA A4 area: 24.3 cm2 RA A4 area: 18.6 cm2 LAV(MOD-bp) Indexed: 34.4 ml/m2 LAV(MOD-sp2): 66.9 ml LAV(MOD-sp4): 73.2 ml Time Measurements MV dec time: 0.29 sec Doppler Measurements & Calculations MV E max norris: 48.0 cm/sec Lat Peak E' Norris: 11.5 cm/sec Med Peak E' Norris: 7.5 cm/sec MV A max onrris: 66.9 cm/sec E/E' lat: 4.2 E/E' med: 6.4 MV E/A: 0.72 MV V2 max: 65.2 cm/sec MV P1/2t max norris: 53.6 cm/sec Ao V2 max: 126.8 cm/sec MV max P.7 mmHg MV P1/2t: 79.0 msec Ao max P.4 mmHg MV V2 mean: 33.0 cm/sec MV dec slope: 198.6 cm/sec2 Ao V2 mean: 82.3 cm/sec MV mean P.52 mmHg Ao mean P.2 mmHg MV V2 VTI: 19.1 cm MVA(P1/2t): 2.8 cm2 Ao V2 VTI: 26.8 cm AI max norris: 482.8 cm/sec LV V1 max: 73.0 cm/sec PA V2 max: 129.3 cm/sec AI max P.4 mmHg LV V1 max P.1 mmHg PA V2 mean: 73.7 cm/sec AI dec slope: 222.6 cm/sec2 LV V1 mean P.0 mmHg AI P1/2t: 635.4 msec LV V1 mean: 46.6 cm/sec LV V1 VTI: 18.9 cm TR max norris: 293.0 cm/sec TR max P.4 mmHg ECHO/Echo Complete Interpretation Summary Normal LV size. Left ventricular systolic function is normal. The estimated ejection fraction is 55 %. Mild (1+) aortic valve insufficiency. Stage 1 diastolic dysfunction. Ordering Physician: Adis Steele Referring Physician: Severino Taylor Performed By: Hood Gary, VANESSA
== END 2022-02-07 23:59 | disposition home or self-care (01) ==
LOC: CVS 12:53
PROVIDERS: PCP Family Medicine; Referring Provider Internal Medicine Cardiovascular Disease; Visit Provider Internal Medicine Cardiovascular Disease
DX: I35.1 Nonrheumatic aortic (valve) insufficiency (principal); I10 Essential (primary) hypertension
CPT/HCPCS: 93306; A4216

== ENCOUNTER 2022-08-15 09:41 | Emergency (ER) | payer MEDICARE, OTHER, SELFPAY ==
[2022-08-15 09:41] VITALS: BP 162/92; PULSE 47; RESP 18; TEMP 35.9; O2SAT 100; BMI 29.1
--- NOTE | 2022-08-15 10:05 | CT_ITS ---
STUDY: CT ABDOMEN AND PELVIS WITHOUT CONTRAST REASON FOR EXAM: Male, 67 years old. Pain: Lower abd pain ??diverticulitis. CT Dye gera RADIATION DOSAGE (If Supplied By Facility): CTDIvol = ( 13.78 ) mGy, DLP = ( 685.36 ) mGycm TECHNIQUE: Transaxial images were obtained from the dome of the diaphragm to the symphysis pubis without oral contrast, and without intravenous contrast. Sagittal and coronal images were reconstructed. Individualized dose optimization techniques were used for this CT. COMPARISON: None. FINDINGS: The visualized lung bases are unremarkable. Coronary artery calcification. There is a 1.1 cm cyst in the anterior aspect of the right lobe liver adjacent to the right hemidiaphragm. There is also evidence of a 8.2 mm cyst in the posterior aspect of the right lobe of the liver. There is also evidence of a 1 cm cyst in the medial aspect of the right lobe of the liver. Smaller cyst also seen in the inferior aspect of the right lobe. Normal gallbladder and extrahepatic biliary system. Normal spleen. Normal pancreas. Normal bilateral adrenal glands. Normal right kidney. Tiny nonobstructive calculus in the upper pole calyx of the left kidney. There is a small hiatal hernia. Normal small intestine. There are scattered colonic diverticula consistent with diverticulosis. The appendix is visualized and appears normal. There is diffuse atherosclerotic calcification of the abdominal aorta, without a demonstrated aneurysm. Normal inferior vena cava. Normal retroperitoneum. Normal urinary bladder. There is a small umbilical hernia containing fat. Normal osseous structures. CT/Abdomen/Pelvis without Cont IMPRESSION: Multiple small hepatic cysts. Tiny nonobstructive left intrarenal calculus. Scattered sigmoid diverticula Electronically Signed: Clay Patel MD at 11:05 EDT ,
--- NOTE | 2022-08-15 10:07 | ED.VIS.GI ---
HPI HPI - GI History of Present Illness Chief Complaint: Abd Pain Detail of Chief Complaint: Lower abdominal pain Informant: patient Abdominal Pain/Flank Pain Onset: Today Context: Gradual Onset Timing: Continuous Quality: Cramping Location: RLQ and LLQ Current Severity: Mild Maximum Severity: Mild Worsened by: Nothing Relieved by: Nothing Nausea/Vomiting/Emesis GI Symptom: Positive for Nausea and Vomiting Onset: Today Severity: Mild Diarrhea/Melena/Hematochezia GI Symptom: Negative for Diarrhea, Melena or Hematochezia Associated Symptoms Associated Symptoms: Negative for Dysuria, Frequency or Hematuria Narrative Narrative: 67-year-old male history of hypertension and polio as a child. States he had lower abdominal pain since around 6 AM this morning. He did have bowel movements today and yesterday. No diarrhea. No melena. No bright red blood. Nausea with dry heaves. Denies any dysuria or hematuria. Never had pain like this before. Denies any prior abdominal surgeries. No trauma. No fever. 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 Non-ischemic cardiomyopathy Home Medications diphenhydramine HCl 50 mg capsule 50 mg PO QHS PRN Sleep 12/25/18 [History Last Taken Unknown] glucosamine sulfate 2KCl 1,000 mg capsule 1,000 mg PO DAILY 12/25/18 [History Last Taken Unknown] multivitamin 1 tab PO DAILY 01/01/20 [History Last Taken Unknown] fluticasone propionate 50 mcg/actuation nasal spray,suspension (Allergy Relief (fluticasone)) 2 spray intranasal DAILY PRN 01/26/21 [History Last Taken Unknown] lisinopril 20 mg tablet 20 mg PO DAILY #90 tabs 08/01/21 [Rx Last Taken Unknown] amoxicillin 500 mg capsule 2,000 mg PO ONCE prosthetic hip 01/19/22 [History Last Taken Unknown] metoprolol tartrate 25 mg tablet 25 mg PO BID #180 tabs 08/01/22 [Rx Last Taken Unknown] ondansetron 4 mg disintegrating tablet 4 mg PO Q6H PRN nausea and vomiting #7 tabs 08/15/22 [Rx Last Taken Unknown] Allergy/AdvReac Type Severity Reaction Status Date / Time Iodine and Iodide Containing Allergy Severe Hives Verified 08/15/22 09:41 Produc milk Allergy Intermediate Diarrhea Verified 08/15/22 09:41 Family History Mother Heart disease atrial fib CVA (cerebral vascular accident) Father Hypertension Cancer Non Hodgkins Lymphoma Surgical History H/O arthroscopic knee surgery History of left hip replacement (2020) Social History Smoking Status: Never smoker alcohol intake: current alcohol intake frequency: a few times a month substance use type: does not use caffeine: Yes Type: coffee Number of servings: 3 ROS ROS ED ROS Narrative Lower abdominal pain. Nausea and dry heaves. No diarrhea. No dysuria. No constipation. No melena. Review of Systems ROS Unobtainable: Denies due to encephalopathy Constitutional Constitutional ED: Denies chills or fever(s) ENT ENT ED: Denies ear pain Cardiovascular Cardiovascular: Denies chest pain Respiratory/Chest Respiratory/Chest: Denies cough or dyspnea Gastrointestinal Gastrointestinal: Reports abdominal pain, nausea and vomiting; Denies constipation, diarrhea or melena Genitourinary Genitourinary ED: Denies dysuria, hematuria or urinary frequency Musculoskeletal Musculoskeletal: Denies arthralgias Integumentary Denies abscess Neurologic Neurologic: Denies headache(s) Psychiatric Psychiatric: Denies anxiety Endocrine Endocrinology: Denies polydipsia Hematologic/Lymphatic Hematologic/Lymphatic: Denies easy bleeding Allergic/Immunologic Allergic/Immunologic ED: Denies mouth swelling or tongue swelling EXAM Physical Exam Narrative Exam Narrative: Well-appearing 67-year-old male. Vital signs stable afebrile. H EENT exam unremarkable. Neck nontender no JVD. No lymphadenopathy. Lungs clear to auscultation bilaterally. Heart regular rhythm bradycardic rate about 50. Abdomen soft, nondistended, normal bowel sounds no peritoneal signs. Minimal left lower quadrant tenderness. No hernia or mass. No pulsatile mass. Both right upper and right lower quadrant unremarkable. No signs of obstruction. Soft. Moving all 4 extremities. Nontender no edema. Back nontender. Neurologically is awake and alert. Const Vital Signs: 08/15/22 09:41 Temperature 96.7 F L Temperature Source Temporal Pulse Rate 47 L Respiratory Rate 18 Blood Pressure 162/92 H Blood Pressure Mean 115 Pulse Ox 100 Oxygen Delivery Method Room Air Positive well nourished and well developed; Negative for cachectic, contractures or unkempt General Appearance ED: well developed and NAD; Negative for unkempt, cachectic, contractures or pallor Nutritional Appearance: Negative for cachectic HEENT Reports moist mucous membranes normocephalic and atraumatic; Negative for trauma or tenderness Eyes PERRL and EOMs intact bilaterally General Eye ED: Negative for pale conjunctiva or scleral icterus Neck no lymphadenopathy, supple and no JVD General: Negative for tenderness Carotids: Negative for other Lymph Lymphatic: Negative for other Resp normal respiratory effort and clear to auscultation bilaterally Effort and Inspection: Negative for respiratory distress Auscultation: Negative for rales, rhonchi or wheezes Cardio regular rhythm, S1 normal heart sound, S2 normal heart sound and no murmurs; Negative for regular rate Rate: bradycardia Rhythm: Negative for abnormal rhythm GI non-distended and no masses; Negative for non-tender Inspection: Negative for abdominal distention Auscultation: normoactive bowel sounds Palpation: soft and tender; Negative for guarding, rigid, hepatomegaly, splenomegaly, hernia, mass, pulsatile mass or rebound tenderness present Back/Spine no CVA tenderness General Back: Negative for CVA tenderness Cervical Spine: Negative for cervical spine tenderness Thoracic Spine / Upper Back: Negative for thoracic spinal tenderness Lumbar Spine / Lower Back: Negative for lumbar spinal tenderness Coccyx: Negative for other Extremity full ROM General Extremety ED: Negative for edema or tenderness General Extremity: Negative for edema Neuro CN's II-XII intact bilaterally and moves all extremities Sensorium / Orientation: alert, oriented to person, oriented to place and oriented to time; Negative for orientation impaired, confused, lethargic or stuporous Motor Exam: strength 5/5 throughout Psych mental status grossly normal and thought process normal Appearance: Negative for unkempt Attitude: No agitated Mood & Affect: Negative for depressed, anxious or tearful Skin no wounds General Skin Exam: Negative for jaundice or pallor Lesions: no lesions Rashes: no rashes Trauma: Negative for abrasion Nails: Negative for discolored MDM MDM MDM Narrative Medical decision making narrative: 67-year-old male with lower abdominal pain. Might be secondary to diverticulitis. Clinically and only has appendicitis. Do not think but it is possible UTI. Unlikely to be a AAA. Its lower abdominal pain does not appear to be his gallbladder or pancreatitis. He does not have a surgical abdomen. Will be given Zofran for nausea morphine for pain. CAT scan and labs to be obtained. He is a CAT scan dye allergy and does not want IV dye. Repeat exam patient doing well at 11:40 AM. Abdomen benign. He denies and his went over all his test results. He is comfortable being discharged home. Outpatient follow-up with his primary care physician. Return if worse. We do not have a specific cause for his discomfort today. History & Record Review Discussion w/independent historian: Patient, Family and Significant other Lab Data Attestation: I reviewed the patient's lab results. Lab results narrative: CBC shows a white 11.5. H&H 14.9 and 44. Platelets 254. Urinalysis normal. No signs of infection. No white or red cells. No nitrates nor bacteria. Chemistries unremarkable gap of 5 normal BUN and creatinine 14 and 1. Liver enzymes unremarkable. Glucose 129. Lipase normal at 32. Abdominal CAT scan without contrast due to allergy shows diverticulosis no diverticulitis. Kidney stone in the kidney. So no acute finding that is causing his lower abdominal pain. Labs: Laboratory Results - last 24 hr 08/15/22 08/15/22 08/15/22 10:13 10:15 10:15 WBC 11.5 H RBC 5.01 Hgb 14.9 Hct 44.6 MCV 89.0 MCH 29.7 MCHC 33.4 RDW Std Deviation 43.9 RDW Coeff of Maki 13.4 Plt Count 254 MPV 9.0 Immature Gran % (Auto) 0.300 Neut % (Auto) 87.5 H Lymph % (Auto) 8.1 L [place] % (Auto) 3.5 Eos % (Auto) 0.2 Baso % (Auto) 0.4 Absolute Neuts (auto) 10.1 H Absolute Lymphs (auto) 0.93 Nucleated RBC % 0 Sodium 141 Potassium 4.6 Chloride 110 H Carbon Dioxide 26.0 Anion Gap 5 BUN 14 Creatinine 1.04 Estim Creat Clear Calc 69.87 Est GFR (MDRD) Af Amer 92 Est GFR (MDRD) Non-Af 76 BUN/Creatinine Ratio 13.5 Glucose 129 H Calcium 9.6 Total Bilirubin 1.20 H AST 17 ALT 23 Alkaline Phosphatase 87 Total Protein 7.3 Albumin 3.9 Globulin 3.4 Albumin/Globulin Ratio 1.1 Lipase 32 Urine Color Yellow Urine Clarity Clear Urine pH 6.5 Ur Specific [place] 1.015 Urine Protein Negative Urine Glucose (UA) Normal Urine Ketones 5 H Urine Occult Blood 10 H Urine Nitrite Negative Urine Bilirubin Negative Urine Urobilinogen Normal Ur Leukocyte Esterase Negative Urine RBC 0 SEEN Urine WBC 0 SEEN Ur Squamous Epith Cells 0 SEEN Urine Bacteria 0 SEEN Urine Mucus 0 SEEN Radiography Diagnostic Testing: Clinical Impression(s) from Imaging Studies Abdomen/Pelvis CT 08/15/22 10:05 IMPRESSION: Multiple small hepatic cysts. Tiny nonobstructive left intrarenal calculus. Scattered sigmoid diverticula Electronically Signed: Clay Patel MD at 11:05 EDT Reading Location ID and State: [facility] / [place] , Service support , Discharge Plan Triage Chief Complaint: Abd Pain ED Provider: Flako Novak Dx/Rx/DC Orders Clinical Impression: Abdominal pain, Vomiting Instructions: Abdominal Pain Prescriptions: New ondansetron 4 mg tablet,disintegrating 4 mg PO Q6H PRN (Reason: nausea and vomiting) Qty: 7 0RF No Action glucosamine sulfate dipotassium chloride 1,000 mg capsule 1,000 mg capsule 1,000 mg PO DAILY diphenhydramine HCl 50 mg capsule 50 mg PO QHS PRN (Reason: Sleep) fluticasone propionate [Allergy Relief (fluticasone)] 50 mcg/actuation spray,suspension 2 spray INTRANASAL DAILY PRN multivitamin Tablet 1 tab PO DAILY amoxicillin 500 mg capsule 2,000 mg PO ONCE Label Comments: TAKE 1 CAPSULE BY MOUTH EVERY DAY Rx Instructions: 4 capsules 30-60 minutes prior to dental procedures lisinopril 20 mg tablet 20 mg PO DAILY Qty: 90 3RF metoprolol tartrate 25 mg tablet 25 mg PO BID Qty: 180 3RF Primary Care Provider: Severino Taylor Referrals: Severino Taylor DO [Primary Care Provider] - 3-5 Days if not improving Activity Restrictions/Additional Instructions: Plenty of fluids and rest. [place] diet increase slowly as tolerated. Motrin and Tylenol for pain. Zofran as needed for nausea. Prescription was sent to your pharmacy. Follow-up with your doctor if not improving or return if feeling worse. Disposition Disposition: Home, Self Care
[2022-08-15] MEDS: Morphine 4 MG/ML Syringe IV (10:16)
[2022-08-15] MEDS: Ondansetron 4 MG/2 ML Vial IV (10:16)
[2022-08-15 10:22] LABS: Bacteria 0 SEEN /hpf (None Seen); Mucous, Urine 0 SEEN /hpf (<or=2+); Red Blood Cells-Urine 0 SEEN /hpf (0-5); Squamous Epithelial Cells - UA 0 SEEN /hpf (0-5); White Blood Cells 0 SEEN /hpf (0-5)
[2022-08-15 10:24] LABS: Absolute Lymphocyte Count 0.93 X10^3/uL (0.83-4.51); Absolute Neutrophil Count 10.1 X10^3/uL (2.0-7.7); Basophil# 0.05 X10^3/uL; Basophil% 0.4 % (0-1); Eosinophil# 0.02 X10^3/uL; Eosinophils% 0.2 % (0-5); Hematocrit 44.6 % (40-54); Hemoglobin 14.9 g/dL (13.0-16.5); Lymphocyte # 0.93 X10^3/ul (0.83-4.51); Lymphocyte % 8.1 % (19-41); Mean Corp Hgb Conc 33.4 g/dL (32-36); Mean Corpuscular Hgb 29.7 pg (27.0-32.0); Monocyte% 3.5 % (0-10); NRBC Flagged by Analyzer 0 % (0-5); Neutrophil # 10.05 X10^3/uL (2.7-7.7); Neutrophil % 87.5 % (47-70); Platelet Count 254 K/mm3 (150-450); RBC Distribution Width CV 13.4 % (11.6-14.6); RBC Distribution Width SD 43.9 fl (35.1-43.9); Red Blood Count 5.01 M/mm3 (4.6-6.2); White Blood Count 11.5 K/mm3 (4.4-11.0)
[2022-08-15 10:29] LABS: Color, Urine Yellow (Yellow); Glucose, Dipstick Normal (Normal); Ketone-Dipstick 5 mg/dl (Negative); Leukocyte Esterase-Dipstick Negative /ul (Negative); Nitrite-Dipstick Negative (Negative); Occult Blood-Urine 10 /ul (Negative); Protein-Dipstick Negative (Negative); Specific Gravity, Urine 1.015 (1.002-1.030); Urine Bilirubin Dipstick Negative (Negative); Urine Clarity Clear (Clear); Urine Urobilinogen Normal (Normal); Urine pH 6.5 (5.0 - 8.0)
[2022-08-15 10:43] LABS: ALB/GLOB Ratio 1.1 RATIO (0.9-2.4); AST(SGOT) 17 U/L (15-37); Alanine Aminotransfer ALT/SGPT 23 U/L (16-61); Albumin, Serum 3.9 g/dL (3.2-5.0); Alkaline Phosphatase 87 U/L (45-117); Anion Gap 5 (5-15); BUN 14 mg/dL (7-18); BUN/Creat Ratio 13.5 RATIO (10-20); Calcium,Total 9.6 mg/dL (8.5-10.1); Chloride 110 mmol/L (98-107); Creatinine, Serum 1.04 mg/dL (0.70-1.30); EST Glomerular Filtration Rate 76 mL/min (>60); Est Glom Filt Rate - Afr Amer 92 mL/min (>60); Estimated Creatinine Clearance 69.87 ml/min; Globulin 3.4 g/dL (2.2-4.2); Glucose 129 mg/dL (74-106); Lipase 32 U/L (13-75); Potassium 4.6 mmol/L (3.5-5.1); Protein, Total 7.3 g/dL (6.4-8.2); Sodium Level 141 mmol/L (136-145)
[2022-08-15 12:01] VITALS: BP 168/64; PULSE 72; RESP 14; O2SAT 99
== END 2022-08-15 12:05 | disposition home or self-care (01) ==
PROVIDERS: Emergency Provider Emergency Medicine; PCP Family Medicine; Visit Provider Emergency Medicine
DX: R10.30 Lower abdominal pain, unspecified (principal); R11.10 Vomiting, unspecified
CPT/HCPCS: 74176; 80053; 81001; 83690; 85025; 96374; 96375; 99283; J7030; A4216; J2405

== ENCOUNTER → 2023-05-24 | Outpatient (CLI) | payer MEDICARE, OTHER, SELFPAY ==
--- OUTSIDE RECORDS SUMMARY | 2023-05-24 09:00 | XMS RPT_ITS | CCD ---
Author Name Unknown Address [address] [place] [address] [address] [place] [id number] Organization [facility] Care Team Providers Care Rotary Engraver Name Role Phone PIETER CARMONA Attending Unavailable PIETER CARMONA Referring Unavailable PIETER CARMONA Referring Unavailable Allergies Allergy Classification Reported Allergen(s) Allergy Type Date of Onset Reaction(s) Facility (1 source) Iodine; Translations: [IODINE] Drug Allergy 03-18-2012 [facility] Repository Problems Active Problems Problem Classification Problem Date Documented Da te Episodic/Chronic Essential hypertension (1 source) Essential (primary) hypertension; Translations: [Essential (primary) hypertension] Onset: 11-30-2017 Chronic Past or Other Problems Problem Classification Problem Date Documented Date Episodic/Chronic Other screening for suspected conditions (not mental disorders or infectious disease) (1 source) Abnormal electrocardiogram [ECG] [EKG]; Translations: [Abnormal electrocardiogram (ECG) (EKG)] Onset: 11-30-2017 Episodic Results Test Name Value Interpretation Reference Range Facil ity Encounters Encounter Date Encounter Type Care Provider Facility Start: 11-30-2017 End: 12-03-2017 Patient encounter procedure PIETER CARMONA [facility] Start: 11-30-2017 End: 12-04-2017 Patient encounter procedure PIETER CARMONA [facility] Clinical Notes 07-01-2020 to 07-05-2020 Note Date & Type Note Facility 07-05-2020 [facility] summary CLINICAL SUMMARY Please take this summary document to your follow up appointments. [facility] 07/05/20 15:31 [address] [place]. [address] PATIENT INFORMATION Name: TRACEY TRAN Address: [address] [place] [address] Age: 65 Years Phone: [phone] : 1955 12:00 MRN: [id number] Sex: Male Race: White Ethnicity: Not Hispan/Lat Admitted From: [facility], [facility] Medical Service: Orthopedic Surgery Nurse Unit/Bed: (CO) 2N 0212-01 Admit Date: 07/05/2020 09:02 PCP: Jagdeep Yeh MD PHYSICIANS INVOLVED WITH CARE Attending Physicians: None found Admitting Physician: None found Primary Care Physician:Ruba COLE, Jagdeep,[facility], - Consults: Dillon COLE , Indio Simpson - Internal Medicine Ronnie COLE , Phuc German - Infectious Disease Yakov COLE , Maik Meek - Internal Medicine Parveen COLE , Severino José - Internal Medicine Keshawn, JULIENNE - Internal Medicine Goodman COLE , Narciso Choudhury - Internal Medicine Problems Active PICC (peripherally inserted central catheter) in place (07/05/2020) Hypertension Allergies iodine (Rash) Milk (Diarrhea) Procedures Revision of hip arthroplasty (07/02/2020) MEASUREMENTS: Last Charted: Weight: 90.88 kg /200 lbs 6 oz ( 07/02/20 12:24:00 ) VITAL SIGNS: Last Charted: Pulse Rate: 70 BPM (07/05 08:00) Blood Pressure: 162/63 mm Hg (07/05 10:00) Pain Score: 3(07/05 10:17) Last Bowel Movement: Date/Time: 07/05 05:20 07/04/2020 00:00 MENTAL STATUS: Level of Conciousness: Alert (07/05 08:00) Orientation: Oriented x 4 (07/05 08:00) MEDICATIONS ORDERED / RECOMMENDED TO BE CONTINUED for: TRAN, TRACEY W ascorbic acid/chondroitin/glucosa/cathy (Glucosamine Chondroitin) 2 Capsule By Mouth once a day. NOTES TO PATIENT: may resume after follow up appointment with surgeon aspirin 81 Milligram By Mouth once a day. NOTES TO PATIENT: MAY RESUME ONCE ASPIRIN SCRIPT IS COMPLETE CefTRIAXone (cefTRIAXone 2 g intravenous injection) 2g Intravenous every 24 hours. Refills: 0. fluticasone nasal (Flonase) 50 Microgram Nasal (Intranasal) once a day. Freetext Medication NEW PRESCRIPTIONS: ASPIRIN TYLENOL CELEBREX OXYCODONE TRAMADOL. lisinopril (Zestril 20 mg oral tablet) 1 Tab(s) By Mouth once a day. metoprolol (Metoprolol Tartrate 25 mg oral tablet) 1 Tab(s) By Mouth Twice a day. multivitamin 1 Tab(s) By Mouth once a day. MEDICATION CHANGE DETAILS NEW MEDICATIONS Other Medications CefTRIAXone (cefTRIAXone 2 g intravenous injection) 2g Intravenous every 24 hours. Refills: 0. Comment Freetext Medication NEW PRESCRIPTIONS: ASPIRIN TYLENOL CELEBREX OXYCODONE TRAMADOL. Comment UPDATED MEDICATIONS None UNCHANGED MEDICATIONS Other Medications ascorbic acid/chondroitin/glucosa/cathy (Glucosamine Chondroitin) 2 Capsule By Mouth once a day. NOTES TO PATIENT: may resume after follow up appointment with surgeon Comment aspirin 81 Milligram By Mouth once a day. NOTES TO PATIENT: MAY RESUME ONCE ASPIRIN SCRIPT IS COMPLETE Comment fluticasone nasal (Flonase) 50 Microgram Nasal (Intranasal) once a day. Comment lisinopril (Zestril 20 mg oral tablet) 1 Tab(s) By Mouth once a day. Comment metoprolol (Metoprolol Tartrate 25 mg oral tablet) 1 Tab(s) By Mouth Twice a day. Comment multivitamin 1 Tab(s) By Mouth once a day. Comment STOP TAKING THESE MEDICATIONS None DO NOT TAKE UNTIL YOU TALK TO YOUR DOCTOR None RECONCILING PROVIDER(S) 07/05/20 12:11:37 EDT Electronically Signed by Narciso Grant MD CefTRIAXone (cefTRIAXone 2 g intravenous injection) Inpatient Medication History (active at the time of summary): Do not administer these medications until re-evaluated by a provider at the next level of care. Sodium Chloride 0.9% PF Flush Syringe 10 mL (Saline Flush*) 10 mL, IV Push, Inject, Q8h, x 30 Day(s),, 07/05/20 13:46:00 EDT CefTRIAXone 2 Gm, IV, Q24h, x 30 Day(s), 07/03/20 10:43:00 EDT, Septic Arthritis Last Dose: 07/05/20 11:38:00 COMMENTS and SPECIAL INSTRUCTIONS: For less than 4 weeks of age, do not administer calcium products within 48 hours. Lisinopril 20 mg Tab (Zestril/Prinivil GEq) (lisinopril) 20 mg = 1 Tab, PO, Tab, Daily,, x 30 Day(s), 07/02/20 10:21:00 EDT Last Dose: 07/05/20 08:18:00 Celecoxib 200 mg Cap (CeleBREX GEq) (CeleBREX) 200 mg = 1 Cap, PO, Cap, BID,, x 5 Time(s)/Dose(s), 07/02/20 16:02:00 EDT Last Dose: 07/05/20 08:18:00 Aspirin 81 mg Tab EC (more content not included)... [facility] 07-05-2020 Hospital Progress note Patient: TRACEY TRAN MRN: [id number] Age: 65 years Sex: Male : 1955 Associated Diagnoses: None Author: Dillon COLE , Indio Simpson Comments Echocardiogram report reviewed. No vegetations identified. Okay for discharge from [facility] med standpoint when okay with surgeon and infectious disease. [facility] 07-05-2020 Hospital Progress note Patient: TRACEY TRAN MRN: [id number] Age: 65 years Sex: Male : 1955 Associated Diagnoses: None Author: Goodman COLE , Narciso Choudhury Assessment 1. Strep bacteremia - Awaiting further; suspect viridans group Strep relating to dental source. Repeat NG 07/03. Echo without vegetation. 2. Left ARTHUR infection - s/p head/liner exchange. viridans Strep from aspirate. Ceftriaxone through 08/16 and then suppression. 3. Leukocytosis - Monitor. 4. HTN - per med. Supervising Physician Comments Documentation By: Consulting Physician. Chief Complaint Hip infection Subjective HPI Hip pain controlled. Review of Systems No fevers, chills, diarrhea. Objective Last Charted Vital Signs Temperature: 98.6 (07/05 08:00) Pulse: 70 (07/05 08:00) Respiration: 16 (07/05 05:20) BP: 162/63 (07/05 10:00) Pulse Ox: 96 (07/05 08:00) Oxygen Delivery: Room air (07/05 10:17) Pain Score: 3 (07/05 10:17) General: NAD Cardiovascular: No edema Respiratory: Normal effort with no accessory muscle use. Skin: No rashes or nodules. Hip dressed. Psychiatric: Alert and oriented x 3. Insight grossly normal. Results Review Labs - Last 36 hours (Max 2 / lab test) CHEMISTRY Sodium 139 (07/05 04:35) 139 (07/04 06:00) Potassium 3.9 (07/05 04:35) 3.9 (07/04 06:00) Chloride 102 (07/05 04:35) 103 (07/04 06:00) CO2 29 (07/05 04:35) 28 (07/04 06:00) Glucose 95 (07/05 04:35) 103 (07/04 06:00) Glucose POCT No result BUN 16 (07/06 03:35) 18 (07/04 06:00) Creatinine 0.82 (07/06 03:35) 0.84 (07/04 06:00) Calcium Total 8.8 (07/06 03:35) 8.9 (07/04 06:00) Magnesium 1.7 (07/06 03:35) 1.7 (07/04 06:00) HEMATOLOGY WBC 9.0 (07/05 04:35) 14.0 (07/04 06:00) RBC 3.84 (07/06 03:35) 3.28 (07/04 06:00) Hb 11.6 (07/06 03:35) 10.0 (07/04 06:00) Hematocrit 34.8 (07/06 03:35) 29.6 (07/04 06:00) Platelets 254 (07/06 03:35) 248 (07/04 06:00) MCV 90.5 (07/05 04:35) 90.3 (07/04 06:00) MCH 30.2 (07/05 04:35) 30.6 (07/04 06:00) RDW 13.7 (07/05 04:35) 13.6 (07/04 06:00) MCHC 33.4 (07/05 04:35) 33.9 (07/04 06:00) Neutrophil Ab 6.2 (07/05 04:35) 9.5 (07/04 06:00) Monocyte Ab 0.9 (07/05 04:35) 1.2 (07/04 06:00) Eosinophil Ab 0.4 (07/05 04:35) 0.2 (07/04 06:00) Basophil Ab 0.1 (07/05 04:35) 0.0 (07/04 06:00) Lymphocyte Ab 1.4 (07/05 04:35) 2.3 (07/04 06:00) OTHER LABS Est CrCl IBW (mL/min)-RX 91.01 mL/min (07/05 04:35) 88.84 mL/min (07/04 06:00) BUN / Creatinine Ratio 20 (07/06 03:35) 21 (07/04 06:00) C-Reactive Protein 184.6 mg/L (07/04 06:00) MPV 7.4 FL (07/06 03:35) 7.7 FL (07/04 06:00) Diff Method AUTOMATED DIFFERENTIAL (07/06 03:35) AUTOMATED DIFFERENTIAL (07/04 05:00) Neutrophil Percent 69.4 % (07/05 04:35) 71.8 % (07/04 06:00) Lymphocyte Percent 15.7 % (07/05 04:35) 17.2 % (07/04 06:00) Monocyte Percent 10.4 % (07/06 03:35) 9.1 % (07/04 06:00) Eosinophil Percent 3.9 % (07/05 04:35) 1.5 % (07/04 06:00) Basophil Percent 0.6 % (07/05 04:35) 0.4 % (07/04 06:00) Health Status Allergies Allergic Reactions (Selected) Severity Not Documented Iodine- Rash. Milk- Diarrhea. Medication List (Selected) Inpatient Medications Ordered Benadryl: 25 mg, PO, Q4h, PRN: Itching/Pruritus Bethanechol Oral: 25 mg, PO, Q8h, PRN: See Comments CefTRIAXone: 2 Gm, 100 mL/hr, IV, Q24h CeleBREX: 200 mg, PO, BID CloNIDine: 0.1 mg, PO, Q6h, PRN: Blood Pressure - See Parameters in Order Dilaudid Inj: 0.5 mg, IV Push, Q2h, PRN: Pain - Breakthrough Dulcolax: 10 mg, Rectal, BID, PRN: Constipation Flexeril: 10 mg, PO, Q8h, PRN: Muscle Spasms LR 1,000 mL: 100 mL/hr, IV, Stop: 08/01/20 16:01:00 EDT Metoprolol Tartrate: 25 mg, PO, BID Milk of Magnesia 8%: 2,400 mg, PO, Daily, PRN: Constipation MiraLax: 17 Gm, PO, Bedtime Mylanta: 30 mL, PO, QID, PRN: Indigestion/Heartburn Nubain: 2.5 mg, IV Push, Q4h, PRN: Itching/Pruritus OxyCODONE: 10 mg, PO, Q4h, PRN: Pain/Discomfort Senna S: 1 Tab, PO, BID TraZODone: 25 mg, PO, Bedtime, PRN: Insomnia/Sleep Tylenol: 650 mg, PO, Q4h, PRN: Pain-Mild/Fever greater than 100.4 (38C) Tylenol: 975 mg, PO, Q8h Zofran Inj: 4 mg, IV Push, Q4h, PRN: Nausea/Vomiting aspirin: 81 mg, PO, BID lisinopril: 20 mg, PO, Daily naloxone: 0.4 mg, IV, PRN, PRN: See Comments oxygen: 1 Each, Inhalation, Daily oxygen: 1 Each, Inhalation, Daily promethazine: 25 mg, Rectal, Q8h, PRN: Nausea/Vomiting Documented Medications Documented Flonase: 50 mcg, Nasal, Daily, Each, 0 Refill(s) Freetext Medication: NEW PRESCRIPTIONS: ASPIRIN TYLENOL CELEBREX OXYCODONE TRAMADOL, Each, 0 Refill(s) Glucosamine Chondroitin: 2 Cap, PO, Daily, Each, 0 Refill(s) Metoprolol Tartrate 25 mg oral tablet: 1 Tab, PO, BID, Each, 0 Refill (more content not included)... [facility] 07-05-2020 Hospital Progress note Patient: TRACEY TRAN Age: 65 years Sex: Male : 1955 Associated Diagnoses: None Author: Dillon COLE , Indio Simpson Assessment Acute Left Hip Periprosthetic Infection: S/P I and D with head and liner revision, left hip, and implantation of bioabsorbable antibiotic delivery beads on 07/02/[address] Brennan. Infectious disease following for assistance with antibiotics. - Chart reviewed on 07/04. Blood cultures from 07/01 POSITIVE. Cardiac ECHO and PICC line planned per the ID service. Remains clinically stable without fevers or hemodynamic compromise. Deep venous thrombosis prophylaxis: DVT prophylaxis is deferred to the primary surgical service per protocol. The use of current ACCP guidelines is recommended. Encourage lower extremity venous return exercises. RECENT INFECTION ETIOLOGY UNCLEAR - this patient had dental work with several dental extractions and oral infection several months ago. He was on antibiotics leading up to the surgery but not postoperatively. He also recently had a skin biopsy in the right lower extremity 1 month ago. There were no antibiotics given at this time either. He is also continue to work outside with minor abrasions on both lower extremities but with no secondary infection noticed. NOTE - this patient had 2 Rapid COVID tests on 07/01/20 - first one positive and second one negative - he then had a PCR Based test that was negative - patient denies any symptoms of infection or recent contact with COVID positive individuals Home medications have been reviewed and continued post surgery. Pain Control - reasonable and controlled on Meds Continue postop protocol. HTN (I10) Chronic condition and present on admission - controlled on home prescription medications, which have been reordered. Blood pressures reviewed and reasonable postop control. Hold parameters for low blood pressure. Continue PRN Clonidine for elevated blood pressure while in hospital. Last BP -147/80 Osteoarthritis ( M 19.9 ) - Chronic pre-existing condition present on admission - additional NSAIDS on hold Known Left Bundle Branch Block - continue to monitor rate and rhythm - no overt symptoms noted - this patient reports his previous cardiac work-up has been favorable. He is also very active with an activity level normally greater than 4 METS. He has had no recent cardiac symptoms or recent change in his cardiac status. PVCs on monitor. Mag and K were checked. Mag again low this morning. Will give supplemental magnesium this morning continue to follow while hospitalized Allergic Rhinitis ( J 30.9 ); Chronic pre-existing condition present on admission. Plan to hold prescribed Antihistamines to prevent urinary retention where applicable. Leukocytosis (D72.829) - WBC count previously 14.0 on 07/04. Patient has a known infection. Defer wound exams to the primary service. The ID service is following for infection and antibiotic management. WBC normalized today. Hypomagnesemia (E83.42) -given mag 1.7 this morning. Will give additional supplemental magnesium. Acute Post Hemorrhagic Anemia (D62) -resolved. Hemoglobin 11.7 this morning. Medically acceptable for discharge if passing flatus, room air sat greater than 90%, meets PT goals, and acceptable to the surgical service -and following review of 2D echo.. Home medication reconciliation completed, defer DVT prophylaxis, NSAIDs, anticoagulants, antibiotics, and pain medications to the surgical service. Supervising Physician Comments Documentation By: Consulting Physician. Chief Complaint Postoperative medical co-management. Health Status Allergies Allergic Reactions (Selected) Severity Not Documented Iodine- Rash. Milk- Diarrhea. Subjective Patient is resting in bed in NAD. Reports pain is being controlled. No c/o CP, SOB. Denies N/V, or abdominal pain, otherwise, ROS has been reviewed and is stated below. Rates pain -mild 2-3 this morning Flatus: yes, recent BM Voiding: -Yes Family -yes, F at bedside Ambulation -200 feet reported Review of Systems Constitutional: denies fever, chills Head/Neck: denies headache, neck pain Eye: denies eye pain, diplopia Ear/Nose/Mouth/Throat: denies sore throat, hearing issues Neurologic: no focal, denies new weakness Cardiovascular: denies chest pain, palpitations Respiratory: denies dyspnea, or cough Gastrointestinal: denies Nausea/Vomiting, abdominal pain. Genitourinary: denies Dysuria, frequency Skin: denies itching or rash. Objective Last Charted Vital Signs Temperature: 97.8 (07/05 05:20) Pulse: 68 (07/05 05:20) Respiration: 16 (07/05 05:20) BP: 147/80 (07/05 05:20) Pulse Ox: 97 (07/05 05:20) Oxygen Delivery: Room air (07/05 05:20) Pain Score: 0 (07/05 06:06) EXAM: General - No Apparent Distress Skin - No Rash, Normal Turgor Eyes - Pupils Equal, No Scleral Icterus ENT - External Ears Normal, Oropharynx Clear Neck - Trachea Midline, No Goiter Cardio (more content not included)... [facility] 07-04-2020 Hospital Progress note Patient: TRACEY TRAN MRN: [id number] Age: 65 years Sex: Male : 1955 Associated Diagnoses: None Author: Yakov COLE , Maik Fantasma Assessment Acute Left Hip Periprosthetic Infection: Status/post irrigation and debridement with head and liner revision, left hip, and implantation of bioabsorbable antibiotic delivery beads on 07/02/[address] Brennan. The ID service has been consulted for infection and antibiotic management. - Chart reviewed on 07/04. Blood cultures from 07/01 POSITIVE. Cardiac ECHO and PICC line planned per the ID service. Remains clinically stable without fevers or hemodynamic compromise. Deep venous thrombosis prophylaxis: DVT prophylaxis is deferred to the primary surgical service per protocol. The use of current ACCP guidelines is recommended. Encourage lower extremity venous return exercises. RECENT INFECTION ETIOLOGY UNCLEAR - this patient had dental work with several dental extractions and oral infection several months ago. He was on antibiotics leading up to the surgery but not postoperatively. He also recently had a skin biopsy in the right lower extremity 1 month ago. There were no antibiotics given at this time either. He is also continue to work outside with minor abrasions on both lower extremities but with no secondary infection noticed. NOTE - this patient had 2 Rapid COVID tests on 07/01/20 - first one positive and second one negative - he then had a PCR Based test that was negative - patient denies any symptoms of infection or recent contact with COVID positive individuals Pain control: Short acting oral narcotics, as well as IV Dilaudid, have been ordered, to be adjusted as indicated. Hypertension ( I 10 ) - chronic pre-existing condition present on admission. Plan to monitor with prescribed antihypertensive medications. - Acceptable postoperative control, last reading noted at 148/82 on 07/04. Continue home prescription antihypertensive medicines and as needed clonidine. Osteoarthritis ( M 19.9 ) - Chronic pre-existing condition present on admission - additional NSAIDS on hold Known Left Bundle Branch Block - continue to monitor rate and rhythm - no overt symptoms noted - this patient reports his previous cardiac work-up has been favorable. He is also very active with an activity level normally greater than 4 METS. He has had no recent cardiac symptoms or recent change in his cardiac status. Allergic Rhinitis ( J 30.9 ); Chronic pre-existing condition present on admission. Plan to hold prescribed Antihistamines to prevent urinary retention where applicable. Leukocytosis (D72.829) - WBC count remains mildly elevated at 14.0 on 07/04. Patient has a known infection. Defer wound exams to the primary service. The ID service is following for infection and antibiotic management. Hypomagnesemia (E83.42) - A magnesium level was checked due to PVCs noted on telemetry during the evening of 07/03. This was mildly low at 1.7 on 07/04. Supplementation and repeat level ordered. Acute Post Hemorrhagic Anemia (D62) - mild and tolerating well, Hgb 10.0 on 07/04. No indication for transfusion at this time. Supervising Physician Comments Documentation By: Consulting Physician. Chief Complaint Postoperative medical co-management. Health Status Allergies Allergic Reactions (Selected) Severity Not Documented Iodine- Rash. Milk- Diarrhea. Subjective Pain control: Mild surgical site pain, adequately controlled Cardiovascular: Denies chest pain, pressure, or palpitations Respiratory: Denies dyspnea or cough Gastrointestinal: Denies abdominal pain, denies nausea or vomiting, reports passing flatus and having a BM over the past 24 hours Genitourinary: Denies dysuria, urine output as noted Neurological: Denied neurological deficits, or changes in strength or sensation Musculoskeletal: Defer to primary service Objective Last Charted Vital Signs Temperature: 97.8 (07/04 08:00) Pulse: 63 (07/04 08:00) Respiration: 15 (07/04 08:00) BP: 148/82 (07/04 08:00) Activity: Awake (07/04 08:00) Pulse Ox: 99 (07/05 07:00) Oxygen Delivery: Room air (07/04 08:00) Pain Score: 2 (07/04 08:41) General: Responds appropriately; no apparent distress Cardiovascular: Regular rate and rhythm; no murmur, rub, or gallop Respiratory: Clear to auscultation; normal respiratory effort Abdomen: Soft; non-distended; non-tender; bowel sounds normoactive Musculoskeletal: Defer to primary service Skin: No rashes Neurological: Alert and oriented x 3; appropriate mood and affect; follows commands/requests appropriately. Results Review Labs - Last 36 hours (Max 2 / lab test) CHEMISTRY Sodium 139 (07/04 06:00) 136 (07/03 08:23) Potassium 3.9 (07/04 06:00) 4.2 (07/03 08:23) Chloride 103 (07/04 06:00) 102 (07/03 08:23) CO2 28 (07/04 06:00) 24 (07/03 08:23) Glucose 103 (07/04 06:00) 152 (07/03 08:23) Glucose POC (more content not included)... [facility] 07-03-2020 Hospital Progress note Patient: TRACEY TRAN Age: 65 years Sex: Male : 1955 Associated Diagnoses: None Author: Yakov COLE , Maik Fantasma Assessment Acute Left Hip Periprosthetic Infection: Status/post irrigation and debridement with head and liner revision, left hip, and implantation of bioabsorbable antibiotic delivery beads on 07/02/[address] Brennan. The ID service has been consulted for infection and antibiotic management. Deep venous thrombosis prophylaxis: DVT prophylaxis is deferred to the primary surgical service per protocol. The use of current ACCP guidelines is recommended. Encourage lower extremity venous return exercises. RECENT INFECTION ETIOLOGY UNCLEAR - this patient had dental work with several dental extractions and oral infection several months ago. He was on antibiotics leading up to the surgery but not postoperatively. He also recently had a skin biopsy in the right lower extremity 1 month ago. There were no antibiotics given at this time either. He is also continue to work outside with minor abrasions on both lower extremities but with no secondary infection noticed. NOTE - this patient had 2 Rapid COVID tests on 07/01/20 - first one positive and second one negative - he then had a PCR Based test that was negative - patient denies any symptoms of infection or recent contact with COVID positive individuals Pain control: Short acting oral narcotics, as well as IV Dilaudid, have been ordered, to be adjusted as indicated. Hypertension ( I 10 ) - chronic pre-existing condition present on admission. Plan to monitor with prescribed antihypertensive medications. - Acceptable postoperative control, last reading noted at 118/77 on 07/03. Continue home prescription antihypertensive medicines and as needed clonidine. Osteoarthritis ( M 19.9 ) - Chronic pre-existing condition present on admission - additional NSAIDS on hold Known Left Bundle Branch Block - continue to monitor rate and rhythm - no overt symptoms noted - this patient reports his previous cardiac work-up has been favorable. He is also very active with an activity level normally greater than 4 METS. He has had no recent cardiac symptoms or recent change in his cardiac status. Allergic Rhinitis ( J 30.9 ); Chronic pre-existing condition present on admission. Plan to hold prescribed Antihistamines to prevent urinary retention where applicable. Leukocytosis (D72.829) - WBC count mildly elevated at 16.4 on 07/03. Patient has a known infection. Defer wound exams to the primary service. The ID service has been consulted for infection and antibiotic management. Supervising Physician Comments Documentation By: Consulting Physician. Chief Complaint Postoperative medical co-management. Health Status Allergies Allergic Reactions (Selected) Severity Not Documented Iodine- Rash. Milk- Diarrhea. Subjective Pain control: Mild surgical site pain, adequately controlled Cardiovascular: Denies chest pain, pressure, or palpitations Respiratory: Denies dyspnea or cough Gastrointestinal: Denies abdominal pain, denies nausea or vomiting, reports passing flatus Genitourinary: Denies dysuria, urine output as noted Neurological: Denied neurological deficits, or changes in strength or sensation Musculoskeletal: Defer to primary service Objective Last Charted Vital Signs Temperature: 97.6 (07/03 07:25) Pulse: 72 (07/03 07:25) Respiration: 12 (07/03 07:25) BP: 118/77 (07/03 07:25) Pulse Ox: 98 (07/03 07:45) Oxygen Delivery: Room air (07/03 07:45) Pain Score: 7 (07/03 05:30) General: Responds appropriately; no apparent distress Cardiovascular: Regular rate and rhythm; no murmur, rub, or gallop Respiratory: Clear to auscultation; normal respiratory effort Abdomen: Soft; non-distended; non-tender; bowel sounds normoactive Musculoskeletal: Defer to primary service Skin: No rashes Neurological: Alert and oriented x 3; appropriate mood and affect; follows commands/requests appropriately. Results Review Labs - Last 36 hours (Max 2 / lab test) CHEMISTRY Sodium 136 (07/03 08:23) 137 (07/02 04:37) Potassium 4.2 (07/03 08:23) 4.0 (07/02 04:37) Chloride 102 (07/03 08:23) 105 (07/02 04:37) CO2 24 (07/03 08:23) 26 (07/02 04:37) Glucose 152 (07/03 08:23) 119 (07/02 04:37) Glucose POCT No result BUN 13 (07/03 08:23) 11 (07/02 04:37) Creatinine 0.79 (07/03 08:23) 0.87 (07/02 04:37) Calcium Total 8.4 (07/03 08:23) 8.4 (07/02 04:37) Magnesium No result HEMATOLOGY WBC 16.4 (07/03 08:23) 14.2 (07/02 04:37) RBC 3.80 (07/03 08:23) 3.97 (07/02 04:37) Hb 11.8 (07/03 08:23) 12.5 (07/02 04:37) Hematocrit 34.4 (07/03 08:23) 36.5 (07/02 04:37) Platelets 198 (07/03 08:23) 172 (07/02 04:37) MCV 90.4 (07/03 08:23) 91.9 (07/02 04:37) MCH 31.0 (07/03 08:23) 31.5 (07/02 04:37) (more content not included)... [facility] 07-03-2020 Surgery Surgical operation note DICTATED BY: KEAGAN BRENNAN MD SERVICE DATE: 07/02/2020 PREOPERATIVE DIAGNOSIS: Acute left periprosthetic infection of hip. POSTOPERATIVE DIAGNOSIS: Acute left periprosthetic infection of hip. PROCEDURES: 1. Irrigation and debridement, left hip. 2. Head and liner revision, left hip. 3. Implantation of bioabsorbable antibiotic delivery beads. SURGEON: Jonathan Brennan MD LAUNDROMAT MANAGER: Severino Gonzalez MD SECOND LAUNDROMAT MANAGER: Robe Carvajal PA-C ANESTHESIA TYPE: General and spinal. ESTIMATED BLOOD LOSS: 100 mL BLOOD PRODUCTS ADMINISTERED: None. URINE OUTPUT: Not recorded. FLUIDS: Per Anesthesia record. COMPLICATIONS: None. FINDINGS: Gross purulence within the left hip capsule, which was sent for culture. The cell count during the procedure was 78,000 white blood cells consistent with infection, periprosthetic left hip. SPECIMENS: Tissue sample x5 as well as a cell count and culture were obtained from the left hip and sent to the lab. INDICATIONS FOR THE PROCEDURE: The patient is a 65-year-old male who underwent an otherwise uncomplicated left total hip arthroplasty in 2012 with my partner who subsequently developed acute onset of pain in the left hip, associated with difficulty moving the left hip and weightbearing, which was also associated with fever. This began late the evening of 06/30/2020, and progressed through the morning on , 07/01/2020. The patient presented acutely to clinic and was seen by another one of my partners where aspiration of the left hip was recommended. The patient underwent arthrocentesis left hip and the cell count was found to be 388,000 consistent with acute infection. The risks, benefits and alternatives of surgical management of the acute hematogenous infection of the left hip periprosthetic were discussed with the patient. He acknowledged the risks and wished to proceed with the operation. DESCRIPTION OF PROCEDURE: The patient was identified in the preoperative holding area and the left lower extremity was identified and marked by the operative team. The consent was reviewed and all questions were answered. The patient was then transferred to the operative suite and placed supine on the operating room table after which he succumbed to general endotracheal anesthesia. All bony prominences were well-padded and the left lower extremity was prepped and draped in standard sterile surgical fashion after which a timeout was performed according to [facility] protocol. After all was agreed upon, a 10 blade scalpel was used to exploit the previously well-healed surgical scar over the anterior left hip and sharp dissection was carried through the subcutaneous tissue to the level of the tensor fascia, which was sharply divided. The tensor fascia mamie muscle was bluntly from its investing fascia and retracted laterally exposing the interval between sartorius and tensor fascia mamie. The fascia was divided and then the interval between rectus femoris and the abductors was exploited to expose the pseudocapsule over the anterior hip. The anterior capsulectomy was performed exposing the femoral neck and at this time, carlos colored opaque thick purulent fluid was encountered within the intraarticular space. This was collected using a syringe and then the fluid was sent for cell count. After the anterior capsulectomy had been performed, the #6 retractor was placed anteriorly and manual traction was held on the hip and the ceramic head and trunnion were disarticulated using a bone tamp and a mallet. The hip was then dislocated using a bone hook and the head was removed. The trunnion was protected and tucked superolateral to the acetabulum and the acetabulum was exposed with a posterior superior #7 retractor to help protect the femoral component as well as an anterior #6 retractor. A synovectomy was performed around the acetabulum and tissue samples were sent for culture. A drill and screw technique was used to remove the acetabular liner successfully. The acetabular component was inspected and no purulence was appreciated within or behind the acetabular component. At this point, the wound was irrigated using 3 liters of normal saline and pulsatile irrigation. The wound was then irrigated using 2 liters of acetic acid solution. The wound was then irrigated using 3 more liters of normal saline pulsatile irrigation. The wound was then irrigated using 1 liter of Bactisure aseptic irrigation product and then the wound was irrigated using 3 liters of normal saline and pulsatile irrigation and the acetabulum was exposed and care was taken to remove all soft tissue from around the acetabulum and then a new acetabular liner was impacted into place. Iodine solution was unable to be used for aseptic irrigation secondary to patient allergy. The proximal femur was then delivered within the wound and a -6 trial was placed. The hip was taken through range of motion and it was felt that although it was f (more content not included)... [facility] 07-02-2020 Mycobacterium sp Org specific cx Ql (Unsp spec) [facility] Microbiology PROCEDURE: Culture AFB and Stain SOURCE: Tissue BODY SITE: COLLECTED DATE/TIME: 07/02/2020 16:40 EDT RECEIVED DATE/TIME: 07/02/2020 16:40 EDT START DATE/TIME: 07/02/2020 16:40 EDT FREE TEXT SOURCE: TISSUE-LT HIP D INTERFACED REPORTS Final Report [] Verified Date/Time/Personnel: 08/31/2020 08:16 EDT CONTRIBUTOR_SYSTEM, CO_PN NO ACID FAST BACILLI GROWN AFTER 8 WEEKS Preliminary Report [] Verified Date/Time/Personnel: 07/03/2020 06:11 EDT CONTRIBUTOR_SYSTEM, CO_PN CULTURE IN PROGRESS CULTURE WILL BE UPDATED IF AN ACID FAST BACILLI IS ISOLATED CULTURE WILL BE HELD FOR 6-8 WEEKS. Acid Fast Smear Report [] Verified Date/Time/Personnel: 07/03/2020 06:11 EDT CONTRIBUTOR_SYSTEM, [employer]_PN NO ACID FAST BACILLI SEEN [facility] Summary Purpose Family History No Family History Records FoundNo Family History Records Found Advance Directives No Advanced Directives Records FoundNo Advanced Directives Records Found Additional Source Comments (unrecognized sect ion and content) No Status Records FoundNo Status Records Found INFORMATION SOURCE (unrecogn ized section and content) DATE CREATED AUTHOR AUTHOR'S ORGANIZ ATION 10/23/2020 [facility] FOR RECORDS PERTAINING TO PATIENTS WHO ARE OR HAVE BEEN ENROLLED IN A CHEMICAL DEPENDENCY/SUBSTANCEABUSE PROGRAM, SOME INFORMATION MAY BE OMITTED. This clinical summary was aggregated from multiple sources. Caution should be exercised in using it in the provision of clinical care. This summary normalizes information from multiple sources, and as a consequence, information in this document may materially change the coding, format and clinical context of patient data. In addition, data may be omitted in some cases. CLINICAL DECISIONS SHOULD BE BASED ON THE PRIMARY CLINICAL RECORDS. [facility] [employer] [facility]. provides no warranty or guarantee of the accuracy or completeness of information in this document.
[2023-05-24 10:12] LABS: Absolute Lymphocyte Count 1.72 X10^3/uL (0.83-4.51); Absolute Neutrophil Count 3.7 X10^3/uL (2.0-7.7); Basophil# 0.11 X10^3/uL; Basophil% 1.7 % (0-1); Eosinophils% 3.1 % (0-5); Hematocrit 42.6 % (40-54); Hemoglobin 14.1 g/dL (13.0-16.5); Lymphocyte # 1.72 X10^3/ul (0.83-4.51); Lymphocyte % 27.1 % (19-41); Mean Corp Hgb Conc 33.1 g/dL (32-36); Mean Corpuscular Hgb 30.1 pg (27.0-32.0); Mean Corpuscular Volume 90.8 fL (80-94); Monocyte# 0.59 X10^3/uL; Monocyte% 9.3 % (0-10); NRBC Flagged by Analyzer 0 % (0-5); Neutrophil # 3.71 X10^3/uL (2.7-7.7); Neutrophil % 58.5 % (47-70); Platelet Count 229 K/mm3 (150-450); RBC Distribution Width CV 13.5 % (11.6-14.6); RBC Distribution Width SD 45.1 fl (35.1-43.9); Red Blood Count 4.69 M/mm3 (4.6-6.2); White Blood Count 6.4 K/mm3 (4.4-11.0)
[2023-05-24 10:42] LABS: ALB/GLOB Ratio 1.1 RATIO (0.9-2.4); AST(SGOT) 21 U/L (15-37); Alanine Aminotransfer ALT/SGPT 24 U/L (16-61); Albumin, Serum 3.5 g/dL (3.2-5.0); Alkaline Phosphatase 80 U/L (45-117); Anion Gap 4 (5-15); BUN 17 mg/dL (7-18); BUN/Creat Ratio 15.9 RATIO (10-20); Calcium,Total 9.2 mg/dL (8.5-10.1); Chloride 111 mmol/L (98-107); Cholesterol 183 mg/dL (200); Creatinine, Serum 1.07 mg/dL (0.70-1.30); EST Glomerular Filtration Rate 73 mL/min (>60); Est Glom Filt Rate - Afr Amer 89 mL/min (>60); Globulin 3.2 g/dL (2.2-4.2); Glucose 107 mg/dL (74-106); High Density Lipoprotein 73 mg/dL; PSA,Total - Annual Screen 2.81 ng/mL (0.00-4.00); Potassium 4.3 mmol/L (3.5-5.1); Protein, Total 6.7 g/dL (6.4-8.2); Sodium Level 141 mmol/L (136-145); Triglycerides 58 mg/dL; Very Low Density Lipoprotein 12 mg/dL (5-40)
== END | disposition home or self-care (01) ==
LOC: MTLAB 08:41
PROVIDERS: PCP Family Medicine; Referring Provider Family Medicine; Visit Provider Family Medicine
DX: I10 Essential (primary) hypertension (principal); Z12.5 Encounter for screening for malignant neoplasm of prostate
CPT/HCPCS: 36415; 80053; 80061; 84153; 85025; G0103

== ENCOUNTER → 2024-05-28 | Outpatient (CLI) | payer MEDICARE, OTHER, SELFPAY ==
[2024-05-28 10:22] LABS: Absolute Lymphocyte Count 1.71 X10^3/uL (0.83-4.51); Absolute Neutrophil Count 3.5 X10^3/uL (2.0-7.7); Basophil# 0.09 X10^3/uL; Basophil% 1.5 % (0-1); Eosinophil# 0.27 X10^3/uL; Eosinophils% 4.4 % (0-5); Hematocrit 43.2 % (40-54); Hemoglobin 14.4 g/dL (13.0-16.5); Lymphocyte # 1.71 X10^3/ul (0.83-4.51); Lymphocyte % 27.6 % (19-41); Mean Corp Hgb Conc 33.3 g/dL (32-36); Mean Corpuscular Hgb 30.5 pg (27.0-32.0); Mean Corpuscular Volume 91.5 fL (80-94); Mean Platelet Vol. 8.9 fl (6.2-12.0); Monocyte# 0.58 X10^3/uL; Monocyte% 9.4 % (0-10); NRBC Flagged by Analyzer 0 % (0-5); Neutrophil # 3.52 X10^3/uL (2.7-7.7); Neutrophil % 56.8 % (47-70); Platelet Count 243 K/mm3 (150-450); RBC Distribution Width CV 13.2 % (11.6-14.6); Red Blood Count 4.72 M/mm3 (4.6-6.2); White Blood Count 6.2 K/mm3 (4.4-11.0)
[2024-05-28 10:31] LABS: Erythrocyte Sedimentation Rate < 1 mm/hr (0-20)
[2024-05-28 10:38] LABS: ALB/GLOB Ratio 1.1 RATIO (0.9-2.4); AST(SGOT) 18 U/L (15-37); Alanine Aminotransfer ALT/SGPT 21 U/L (16-61); Albumin, Serum 3.6 g/dL (3.2-5.0); Alkaline Phosphatase 81 U/L (45-117); Anion Gap 5 (5-15); BUN 14 mg/dL (7-18); CRP 3.08 mg/L (0.0-3.0); Calcium,Total 8.9 mg/dL (8.5-10.1); Chloride 107 mmol/L (98-107); Cholesterol 174 mg/dL (200); Creatinine, Serum 1.08 mg/dL (0.70-1.30); EST Glomerular Filtration Rate 72 mL/min (>60); Est Glom Filt Rate - Afr Amer 87 mL/min (>60); Globulin 3.2 g/dL (2.2-4.2); Glucose 100 mg/dL (74-106); High Density Lipoprotein 66 mg/dL; PSA,Total - Annual Screen 2.16 ng/mL (0.00-4.00); Potassium 4.2 mmol/L (3.5-5.1); Protein, Total 6.8 g/dL (6.4-8.2); Rheumatoid Factor < 10.0 IU/mL (<15); Sodium Level 140 mmol/L (136-145); Triglycerides 109 mg/dL; Very Low Density Lipoprotein 22 mg/dL (5-40)
[2024-05-28 13:56] LABS: Hemoglobin A1c 5.4 % (3.8-5.6)
[2024-05-29 12:08] LABS: CCP IgG Antibodies 2 units (0-19)
== END | disposition home or self-care (01) ==
LOC: MTLAB 07:34
PROVIDERS: PCP Family Medicine; Referring Provider Family Medicine; Visit Provider Family Medicine
DX: I10 Essential (primary) hypertension (principal); M13.0 Polyarthritis, unspecified; Z12.5 Encounter for screening for malignant neoplasm of prostate; R73.01 Impaired fasting glucose
CPT/HCPCS: 36415; 80053; 80061; 83036; 84153; 85025; 85652; 86140; 86200; 86431; G0103